=== PATIENT | female | born 1955 | race African-American/Black ===

== ENCOUNTER → 2020-01-10 16:46 | Outpatient (CLI) | payer OTHER, SELFPAY ==
--- NOTE | ~2020-01-10 | XR_ITS ---
EXAMINATION: XR chest 2V EXAM DATE: 01/10/2020 17:03 INDICATION: Cough for one month. TECHNIQUE: Frontal and lateral projections of the chest obtained and reviewed. Comparison is made to prior examination from 10/12/2014. FINDINGS: The lungs are clear. There are no pleural effusions. The cardiomediastinal silhouette is within normal limits. There is no pneumothorax suspected. The bones and soft tissues are unremarkab le. There are cholecystectomy clips. Cervical fusion hardware. IMPRESSION: No acute cardiopulmonary findings. Reviewed, dictated and finalized at location A.
== END ==
PROVIDERS: PCP Family Medicine; Visit Provider Family Medicine
DX: R05 Cough (principal)
CPT/HCPCS: 71046

== ENCOUNTER 2021-03-30 14:47 | Outpatient (CLI) | payer BC, SELFPAY ==
--- NOTE | ~2021-03-30 | XR_ITS ---
EXAMINATION: XR chest 2V 03/30/2021 15:10 INDICATION: Cough for 2 weeks PROCEDURE: 2 view chest COMPARISON: Comparison to multiple prior studies sequentially, with oldest reviewed study dated 11/05. FINDINGS: The lungs are clear. The cardiomediastinal silhouette is within normal limits. There are no pleural effusions. There is no pneumothorax suspected. There are surgical changes consistent wit h cervical spinal fusion. There are cholecystectomy clips. IMPRESSION: 1: NO ACUTE CARDIOPULMONARY DISEASE. Reviewed, dictated and finalized at location A.
== END 2021-03-30 14:48 | disposition home or self-care (01) ==
LOC: ANHIMG 14:53
PROVIDERS: PCP Family Medicine; Visit Provider Physician Assistant
DX: J06.9 Acute upper respiratory infection, unspecified (principal); R05 Cough
CPT/HCPCS: 71046

== ENCOUNTER 2024-03-02 13:39 | Outpatient (CLI) | payer BC, SELFPAY ==
--- NOTE | 2024-03-02 14:25 | NEURO_ITS ---
Impression: # Non-diabetic complains of numbness of hands. # Bilateral sensory Carpal Tunnel Syndrome. # No ulnar neuropathy. # Normal needle/EMG exam. Nerve Conduction Studies Anti Sensory Summary Table Stim Site NR Peak (ms) P-T Amp (?V) Site1 Site2 Delta-P (ms) Dist (cm) Alan (m/s) Left Median Anti Sensory (2-3nd Digit) Wrist 4.2 29.5 Wrist 2-3nd Digit 4.2 14.0 33 Wrist 3.9 35.4 Wrist 2-3nd Digit 4.2 14.0 33 Right Median Anti Sensory (2-3nd Digit) Wrist 3.5 12.9 Wrist 2-3nd Digit 3.5 14.0 40 Wrist 3.3 31.4 Wrist 2-3nd Digit 3.5 14.0 40 Left Radial Anti Sensory (Base 1st Digit) Wrist 2.1 12.5 Wrist Base 1st Digit 2.1 0.0 Right Radial Anti Sensory (Base 1st Digit) Wrist 2.4 25.5 Wrist Base 1st Digit 2.4 0.0 Left Ulnar Anti Sensory (5th Digit) Wrist 3.0 29.8 Wrist 5th Digit 3.0 14.0 47 Right Ulnar Anti Sensory (5th Digit) Wrist 2.6 14.9 Wrist 5th Digit 2.6 14.0 54 Motor Summary Table Stim Site NR Onset (ms) O-P Amp (mV) Site1 Site2 Delta-0 (ms) Dist (cm) Alan (m/s) Left Median Motor (Abd Poll Brev) Wrist 3.5 7.0 Elbow Wrist 5.3 31.0 58 Elbow 8.8 3.9 Right Median Motor (Abd Poll Brev) Wrist 3.4 2.5 Elbow Wrist 4.8 29.0 60 Elbow 8.2 1.9 Left Ulnar Motor (Abd Dig Minimi) Wrist 2.6 6.8 A Elbow Wrist 5.3 31.0 58 A Elbow 7.9 5.0 Right Ulnar Motor (Abd Dig Minimi) Wrist 2.7 2.8 A Elbow Wrist 5.0 31.0 62 A Elbow 7.7 2.9 F Wave Studies NR F-Lat (ms) L-R F-Lat (ms) Left Median (Mrkrs) (Abd Poll Brev) 28.98 1.32 Right Median (Mrkrs) (Abd Poll Brev) 27.66 1.32 Left Ulnar (Mrkrs) (Abd Dig Min) 28.36 1.17 Right Ulnar (Mrkrs) (Abd Dig Min) 27.19 1.17 EMG Side Muscle Nerve Root Ins Act Fibs Amp Dur Recrt Comment Right 1stDorInt Ulnar C8-T1 Nml Nml Nml Nml Nml Right Ext Indicis Radial (Post Int) C7-8 Nml Nml Nml Nml Nml Right Ext Digitorum Radial (Post Int) C7-8 Nml Nml Nml Nml Nml Right BrachioRad Radial C5-6 Nml Nml Nml Nml Nml Right PronatorTeres Median C6-7 Nml Nml Nml Nml Nml Right Abd Poll Brev Median C8-T1 Nml Nml Nml Nml Nml Right ABD Dig Min Ulnar C8-T1 Nml Nml Nml Nml Nml Left 1stDorInt Ulnar C8-T1 Nml Nml Nml Nml Nml Left Ext Indicis Radial (Post Int) C7-8 Nml Nml Nml Nml Nml Left Ext Digitorum Radial (Post Int) C7-8 Nml Nml Nml Nml Nml Left BrachioRad Radial C5-6 Nml Nml Nml Nml Nml Left PronatorTeres Median C6-7 Nml Nml Nml Nml Nml Left Abd Poll Brev Median C8-T1 Nml Nml Nml Nml Nml Left ABD Dig Min Ulnar C8-T1 Nml Nml Nml Nml Nml MTDD
== END 2024-03-02 13:40 | disposition home or self-care (01) ==
PROVIDERS: PCP Family Medicine; Visit Provider Family Medicine
DX: R20.0 Anesthesia of skin (principal); G56.03 Carpal tunnel syndrome, bilateral upper limbs
CPT/HCPCS: 95886; 95911

== ENCOUNTER 2024-11-29 16:14 | Outpatient (CLI) | payer BC, SELFPAY ==
[2024-11-29 17:21] LABS: Influenza A QL RT-PCR Positive (Negative); Influenza B QL RT-PCR Negative (Negative); RSV RNA, RT-PCR Negative (Negative); SARS-CoV-2 RNA PCR Negative (Negative)
--- OUTSIDE RECORDS SUMMARY | 2024-11-29 18:25 | XMS_ITS | Encounter Summary ---
Author Organization [facility] Facility Care Team Providers Care Scheme Technician Name Role Phone Jose Alfredo Rudolph MD Primary Care Provider Unknown, Notinfile Primary Care Provider Unavail able Jose Alfredo Rudolph MD Primary Care Provider Jose Alfredo Rudolph MD Unavailable [phone] Jose Alfredo Rudolph MD Primary Care Provider Cristine Thurston MD Unavailable [phone] Encounter Details Date Type Department Care Team (Latest Contact Info) Description 11/04/2018 Orders Only [facility] CLINCON[facility] ProviderDwight MD [address] [place] [id number] Social History Tobacco Use Types Packs/Day Years Used Date Smoking Tobacco: Never Assessed Comments Unknown Sex and Gender Information Value Date Recorded Sex Assigned at Not on file Legal Sex Female 11:47 PM ROUGHER OPERATOR Gender Identity Not on file Sexual Orientation Not on file documented as of this encounter Plan of Treatment Not on file documented as of this encounter Procedures Procedure Name Priority Date/Time Associated Diagnosis Comments PROCEDURE - RESULT 11/06/2018 12 :00 AM ROUGHER OPERATOR documented in this encounter Results * PROCEDURE - RESULT (11/06/2018 12:00 AM ROUGHER OPERATOR) Narrative 11/06/2018 12:00 AM ROUGHER OPERATOR Ordered by an unspecified provider. Historical Provider Final Res ult documented in this encounter Visit Diagnoses Not on filedocumented in this encounter Care Teams Scheme Technician Relationship Specialty Start Date End Date Jose Alfredo Rudolph MD [address] [place] [address] PCP - General 11/27/18 12/31/18 Unknown, Notinfile PCP - General 01/01/19 01/10/19 Jose Alfredo Rudolph MD [address] [place] [address] PCP - General Family Medicine 01/11/19 01/11/19 Jose Alfredo Rudolph MD [address] [place] [address] PCP - General Family Medicine 01/12/19 Jose Alfredo Rudolph MD [address] [place] [address] 01/01/19 Cristine Thurston MD [address] [place] [address] Referring Physician Obstetrics and Gynecology 05/04/22 documented as of this encounter
--- OUTSIDE RECORDS SUMMARY | 2024-11-29 18:25 | XMS_ITS | Encounter Summary ---
Author Organization [facility] Facility Care Team Providers Care Utilization Management Manager Name Role Phone Jose Alfredo Rudolph MD Primary Care Provider Unknown, Notinfile Primary Care Provider Unavail able Jose Alfredo Rudolph MD Primary Care Provider Jose Alfredo Rudolph MD Unavailable [phone] Jose Alfredo Rudolph MD Primary Care Provider Cristine Thurston MD Unavailable [phone] Encounter Details Date Type Department Care Team (Latest Contact Info) Description 09/09/2018 Orders Only [facility] CLINCONV ProviderDwight MD [address] [place] [address] Social History Tobacco Use Types Packs/Day Years Used Date Smoking Tobacco: Never Assessed Comments Unknown Sex and Gender Information Value Date Recorded Sex Assigned at Not on file Legal Sex Female 11:47 PM HEALTH CLINICIAN Gender Identity Not on file Sexual Orientation Not on file documented as of this encounter Plan of Treatment Not on file documented as of this encounter Procedures Procedure Name Priority Date/Time Associated Diagnosis Comments PROCEDURE - RESULT 09/10/2018 12 :00 AM HEALTH CLINICIAN documented in this encounter Results * PROCEDURE - RESULT (09/10/2018 12:00 AM HEALTH CLINICIAN) Narrative 09/10/2018 12:00 AM HEALTH CLINICIAN Ordered by an unspecified provider. Historical Provider Final Res ult documented in this encounter Visit Diagnoses Not on filedocumented in this encounter Care Teams Utilization Management Manager Relationship Specialty Start Date End Date Jose Alfredo Rudolph MD [address] [place] [address] PCP - General 11/27/18 12/31/18 Unknown, Notinfile PCP - General 01/01/19 01/10/19 Jose Alfredo Rudolph MD [address] [place] [address] PCP - General Family Medicine 01/11/19 01/11/19 Jose Alfredo Rudolph MD [address] [place] [address] PCP - General Family Medicine 01/12/19 Jose Alfredo Rudolph MD [address] [place] [address] 01/01/19 Cristine Thurston MD [address] [place] [address] Referring Physician Obstetrics and Gynecology 05/04/22 documented as of this encounter
--- OUTSIDE RECORDS SUMMARY | 2024-11-29 18:25 | XMS_ITS | Encounter Summary ---
Author Organization [facility] Facility Care Team Providers Care Billet Inspector Name Role Phone Jose Alfredo Rudolph MD Primary Care Provider Unknown, Notinfile Primary Care Provider Unavail able Jose Alfredo Rudolph MD Primary Care Provider Jose Alfredo Rudolph MD Unavailable [phone] Jose Alfredo Rudolph MD Primary Care Provider Cristine Thurston MD Unavailable [phone] Encounter Details Date Type Department Care Team (Latest Contact Info) Description 09/07/2018 Orders Only [facility] CLINCONV ProviderDwight MD [address] [place] [address] Social History Tobacco Use Types Packs/Day Years Used Date Smoking Tobacco: Never Assessed Comments Unknown Sex and Gender Information Value Date Recorded Sex Assigned at Not on file Legal Sex Female 11:47 PM CONSTRUCTION SALES REPRESENTATIVE Gender Identity Not on file Sexual Orientation Not on file documented as of this encounter Plan of Treatment Not on file documented as of this encounter Procedures Procedure Name Priority Date/Time Associated Diagnosis Comments PROCEDURE - RESULT 09/07/2018 12 :00 AM CONSTRUCTION SALES REPRESENTATIVE documented in this encounter Results * PROCEDURE - RESULT (09/07/2018 12:00 AM CONSTRUCTION SALES REPRESENTATIVE) Narrative 09/07/2018 12:00 AM CONSTRUCTION SALES REPRESENTATIVE Ordered by an unspecified provider. Historical Provider Final Res ult documented in this encounter Visit Diagnoses Not on filedocumented in this encounter Care Teams Billet Inspector Relationship Specialty Start Date End Date Jose Alfredo Rudolph MD [address] [place] [address] PCP - General 11/27/18 12/31/18 Unknown, Notinfile PCP - General 01/01/19 01/10/19 Jose Alfredo Rudolph MD [address] [place] [address] PCP - General Family Medicine 01/11/19 01/11/19 Jose Alferdo Rudolph MD [address] [place] [address] PCP - General Family Medicine 01/12/19 Jose Alfredo Rudolph MD [address] [place] [address] 01/01/19 Cristine Thurston MD [address] [place] [address] Referring Physician Obstetrics and Gynecology 05/04/22 documented as of this encounter
--- OUTSIDE RECORDS SUMMARY | 2024-11-29 18:25 | XMS_ITS | Clinical Summary ---
Author Organization [facility] Address [address], [address] [address] Phone Care Team Providers Care Principal Accounts Clerk Name Role Phone Jose Alfredo Rudolph MD Primary Care Provider Sylvain Mac DO Unavailable Medications polyethylene glycol (MIRALAX) Powder Mix the entire bottle with 64 oz of a clear liquid. Use as directed by the office for colonoscopy prep. 255 g 8 Active Social History Tobacco Use Types Packs/Day Years Used Date Smoking Tobacco: Never Assessed Comments Unknown Sex and Gender Information Value Date Recorded Sex Assigned at Not on file Legal Sex Female 10:44 AM CDT Gender Identity Not on file Sexual Orientation Not on file Plan of Treatment Health Maintenance Due Date Last Done Comments DEXA Bone Density 1955 Hepatitis C Virus (HCV) Screening 1955 TdaP Immunization 1955 Cologuard 01/11/2006 Immunochemical Fecal Occult Blood 01/11/2006 Mammogram 01/11/2006 Pneumococcal Immunization (5 0+ years) (1 of 1 - PCV) 01/11/2006 Zoster Immunization (1 of 2) 01/11/2006 Influenza Immunization (#1) 2024 SARS-COV-2 Immunization ( - season) 2024 Colonoscopy 03/30/2028 03/30/2018 Colorectal Cancer Screening 03/30/2028 Respiratory Syncytial Virus (RSV) Immunization (Adult) (1 - 1-dose 75+ series) 01/11/2031 03/30/2018 Hepatitis B Immunization Aged Out No longer eligible based on patient's age to complete this topic Meningococcal Immunization (ACWY) Aged Out No longer eligible based on patient's age to complete this topic Rotavirus Immunization Aged Out No lo nger eligible based on patient's age to complete this topic Procedures Procedure Name Priority Date/Time Associated Diagnosis Comments COLONOSCOPY Routine 03/30/2018 from Last 3 Months or Most Recently Relevant to Health Maintenance Results * HM COLONOSCOPY (03/30/2018) Sylvain Mac DO PROCEDURE/MINOR SURGICAL ORDERA BLES Final Result from Last 3 Months or Most Recently Relevant to Health Maintenance Care Teams Principal Accounts Clerk Relationship Specialty Start Date End Date Jose Alfredo Rudolph MD [address] [place] [address] PCP - General Family Medicine 12/31/17 Sylvain Mac DO [address] [place] [address] Gastroenterology 03/31/18
--- OUTSIDE RECORDS SUMMARY | 2024-11-29 18:25 | XMS_ITS | Clinical Summary ---
Author Organization [facility] [place] Address [facility] [place] [address] Care Team Providers Care Interventional Physician Name Role Phone Jose Alfredo Rudolph MD Unavailable [phone] Jose Alfredo Rudolph MD Primary Care Provider Cristine Thurston MD Unavailable [phone] Allergies No known active allergies Medications aspirin (ASPIR-81) 81 mg enteric coated tablet Rx: Aspir-81 Active calcium-magnesiu m-zinc tablet Rx: Calcium Magnesium Active atorvastatin (LIPITOR) 10 mg tablet 10 mg daily Active dilTIAZem XR (dilTIAZem CD) 240 mg 24 hr capsule 240 mg daily Active ibuprofen (ADVIL,MOTRIN) 800 mg tablet 800 mg 3 (three) times a day Active irbesartan (AVAPRO) 150 mg tablet 150 mg daily Active cupdl-ss-4-dha-e cq-bvluihj-fld (MEGARED OMEGA-3 KRILL OIL) 029-919-48-64 mg capsule 500 mg Active polyethylene glycol (MIRALAX) 17 gram/dose powder Mix the entire bottle with 64 oz of a clear liquid. Use as directed by the office for colonoscopy prep & PRN 8 Active triamterene-hydr oCHLOROthiazide (MAXZIDE-25MG) 37.5-25 mg per tablet/capsule daily Activ e vitamin b complex (VITAMINS B COMPLEX) tablet Rx: Vitamin B Complex - Tablet Active HYDROcodone-acet aminophen (NORCO) 5-325 mg per tablet 5-325 mg every 8 (eight) hours as needed 8 Active diclofenac sodium (VOLTAREN) 1 % gelIndications:S tatus post surgical manipulation of knee joint Apply 4 grams to affected area prn 4 Tube 9 Active Active Problems Problem Noted Date Diagnosed Date Pes anserinus bursitis of right knee 02/16/2019 Status post surgical manipulation of knee joint 2019 History of total knee arthroplasty, right 2018 History of arthroplasty of right knee 10/12/2018 Aftercare following joint replacement surgery Primary osteoarthritis of right knee 01/22/2018 Hypertension 06/02/2014 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 06/02/2014 Overview (01/22/2018): Description: , possible Spinal stenosis of cervical region 06/02/2014 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 Encounters Date Type Department Care Team Description 09/06/2024 11:57 AM [facility] - 09/06/2024 11:59 PM [facility] Hospital Encounter [facility] [place] [address] Screening mammogram, encounter for Discharge Disposition: Discharge to home or self care 09/06/2024 11:57 AM [facility] - 09/06/2024 11:59 PM [facility] [place] [place] [address] Asymptomatic menopausal state; Encounter for screening for osteoporosis Discharge Disposition: Discharge to home or self care from Last 3 Months Immunizations Immunization Administration Dates Next Due Influenza, Trivalent, Preservative Free, Intramu scular 07/13/2014 Surgical History Surgery Date Site/Laterality Comments CHOLECYSTECTOMY Cholecystectomy - (Added by LACEY Conv) JOINT REPLACEMENT KNEE SURGERY TOTAL KNEE ARTHROPLASTY 09/09/2018 Right MANIPULATION KNEE JOINT 11/04/2017 Right HYSTERECTOMY 03/13/1991 Hysterectomy - (Added by LACEY Conv) PARTIAL Medical History Medical History Date Comments Personal history of other di seases of the circulatory system History of hypertension - (A dded by TW Conv) Hypertension Hypercholesteremia Arthritis Family History Medical History Relation Name Comments Diabetes Father Family history of diabetes mellitus - (Added by TW Conv) Heart disease Father Family history of cardiac disorder - (Added by TW Conv) Hypertension Father Family history of hypertension - (Added by TW Conv) Stroke Father Family history of cerebrovascular accident - (Added by TW Conv) Heart disease Mother Family history of cardiac disorder - (Added by TW Conv) Breast cancer Mother's Sister Relation Name Status Comments Father Mother Mother's Sister Social History Tobacco Use Types Packs/Day Years Used Date Smoking Tobacco: Never Alcohol Use Standard Drinks/Week Comments Yes 0 (1 standard drink = 0.6 oz pur e alcohol) AUDIT-C Answer Date Recorded Frequency of Alcohol Consumption Monthly or less 2019 Average Number of Drinks Not on file 019 Frequency of Binge Drinking Not on file 11/2018 Comments No Sex and Gender Information Value Date Recorded Sex Assigned at Not on file Legal Sex Female 11:47 PM [facility] Gender Identity Not on file Sexual Orientation Not on file 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 file Not on file Obstetrics History Para Term AB IAB SAB Ectopic Multiple Livin g Live Births 3 2 2 Date Outcome GA Total Labor Labor/2nd/3rd Weight Sex Type Anes PTL Bre A1 A5 Name Clin Term Term Last Filed Vital Signs Vital Sign Reading Time Taken Comments Blood Pressure 108/66 11/04/2018 8:45 AM [facility] Pulse 65 11/04/2018 8:45 AM [employer] Temperature 36.4 C (97.5 F) 11/04/2018 8:45 AM [employer] [facility] [employer] Respiratory Rate - - Oxygen Saturation 93% 11/04/2018 8:45 AM [employer] Inhaled Oxygen Concentration - - Weight 88.5 kg (195 lb) 02/14/2020 3:15 PM CDT Height 165.1 cm (5' 5 ) 02/14/2020 3:15 PM CDT Body Mass Index 32.45 02/14/2020 3:15 PM CDT Plan of Treatment Health Maintenance Due Date Last Done Comments Colon Cancer Screening-Colonoscopy 1955 Depression Screening 1955 Fall Risk Assessment 1955 Hepatitis C Screening 1955 DTaP/Tdap/Td Vaccine (1 - Tdap) 01/11/1967 Hepatitis B Screening 01/11/1974 Zoster Vaccine (1 of 2) 01/11/2006 Pneumococcal vaccine 65+ (2 of 2 - PCV) 01/11/2021 11/30/2017 Well Visit 65+ 01/11/2021 Influenza Vaccine (#1) 2024 8, 11/30/2017, 08/03/2014, Additional history exists Breast Cancer Screening-Mammogram 09/06/2025 09/06/2024, 05/06/2023, 05/04/2022, Additional history exists Osteoporosis Screening-Bone Density Scan 09/06/2026 09/06/2024, 05/01/2021, 04/12/2019, Additional history exists Procedures Procedure Name Priority Date/Time Associated Diagnosis Comments SCREENING MAMMOGRAM BILATERAL W ISAIAS Schedule Routine, Read Routine (OP Routine) 09/06/2024 12:30 PM [facility] Screening mammogram, encounter for DEXA AXIAL SKELETON BONE DENSITY 1 OR MORE SITES Schedule Routine, Read Routine (OP Routine) 09/06/2024 12:30 PM [facility] Asymptomatic menopausal state Encounter for screening for osteoporosis from Last 3 Months Results * Screening Mammogram Bilateral W Isaias (09/06/2024 12:30 PM [facility]) Anatomical Region Laterality Modality Breast Bilateral Mammography Impressions 09/06/2024 1:12 PM [facility] BI-RADS ATLAS category (overall): 1 - Negative There is no mammographic evidence of malignancy. A 1 year screening mammogram is recommended. The patient has been or will be contacted. We recommend annual screening mammography for women at average risk of breast cancer beginning at age 40, based on guidelines of the [employer] (ACR Practice Parameter for the Performance of Screening and Diagnostic Mammography) and [employer]stetric[employer] Gynec[employer]. For women with and elevated risk of breast cancer, please refer to the ACR Practice Parameter for specific screening recommendations. The patient will be entered into a reminder system with a target due date of 1 year for her next screening exam. Narrative 09/06/2024 1:12 PM [facility] Screening Mammogram Bilateral W Isaias: 09/06/24 The study was acquired using full field digital technology and interpreted from soft copy. 2D digital mammographic views, as well as 3D digital tomosynthesis were performed in the CC and MLO projections. This study was resulted using Computer-Aided Detection (CAD). CLINICAL: Screening mammogram, encounter for. No relevant medical history has been documented for this patient. History of breast cancer in Mother's Sister. COMPARISONS: 05/06/2023 Screening Mammogram Bilateral W Isaias 05/04/2022 Screening Mammogram Bilateral W Isaias 05/01/2021 Screening Mammogram Bilateral W Isaias BREAST TISSUE: The breasts are heterogeneously dense, which may obscure small masses. FINDINGS: No suspicious masses, suspicious calcifications, or other suspicious findings are seen within either breast. There has been no suspicious change. us Self Screening Mammogram IMG MAMMO PROCEDURES Fi nal Result * Dexa Axial Skeleton Bone Density 1 or 2 Site (09/06/2024 12:30 PM [facility]) Anatomical Region Laterality Modality Body N/A Mammography 09/06/2024 1:30 PM [facility] Narrative 09/06/2024 1:31 PM [facility] EXAM DESCRIPTION: DEXA AXIAL SKELETON BONE DENSITY 1 OR MORE SITES REASON FOR STUDY: 69 y/o year old F with given history of: Post menopausal status. 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 LEFT HIP: Total BMD is 1.036 g/cm2 T-score is 0.0 This is a 9.5% decrease in comparison to prior exam which is statistically significant. Femoral neck BMD is 0.829 g/cm2 T-score is -0.9 FRAX: FRAX not reported due to T-scores of hip, femoral neck and/or spine being at or above -1.0 (Normal). IMPRESSION: Normal bone mass. REFERENCE: Bone mineral density: T-Score: Normal (T-score above or = -1.0) Low bone mass (T-score between -1.0 and -2.5) replaces the previously used term osteopenia Osteoporosis (T-score = or below -2.5) Z-Score: Within the expected range for age (Z-score above -2.0) Below the expected range for age (Z-score is -2.0 or below) Please see below follow up recommendations. Medical evaluation for secondary causes of low bone mineral density may be appropriate. FRAX is a World Health Organization validated fracture risk assessment tool that calculates a person's 10 year probability of a major osteoporosis related fracture and hip fracture. According to the National Osteoporosis Foundation guidelines, postmenopausal women and men age 50 or older with low bone mass and a 10 year probability of a major osteoporosis related fracture = or greater than 20% or a 10 year probability of a hip fracture = or greater than 3% should be considered for pharmacological treatment for the prevention of osteoporosis. For further information, including treatment recommendations, please refer to the 2019 ISCD Official Positions (http://www.iscd.org) and the NOF's Clinician's Guide to Prevention and Treatment of Osteoporosis (http://www.nof.org/professionals/clinical-guidelines) THIS IS AN ELECTRONICALLY VERIFIED FINAL REPORT 09/06/2024 1:31 PM - Electronically signed by Ana Luisa Mccabe M.D. TW: TW Report ID: [id number] Reading Location: [place] [id number] Procedure Note Ana Luisa Mccabe MD - 09/06/2024 EXAM DESCRIPTION: DEXA AXIAL SKELETON BONE DENSITY 1 OR MORE SITES REASON FOR STUDY: 69 y/o year old F with given history of: Post menopausal status. 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 LEFT HIP: Total BMD is 1.036 g/cm2 T-score is 0.0 This is a 9.5% decrease in comparison to prior exam which is statistically significant. Femoral neck BMD is 0.829 g/cm2 T-score is -0.9 FRAX: FRAX not reported due to T-scores of hip, femoral neck and/or spine beingat or above -1.0 (Normal). IMPRESSION: Normal bone mass. REFERENCE: Bone mineral density: T-Score: Normal (T-score above or = -1.0) Low bone mass (T-score between -1.0 and -2.5) replaces thepreviously used term osteopenia Osteoporosis (T-score = or below -2.5) Z-Score: Within the expected range for age (Z-score above -2.0) Below the expected range for age (Z-score is -2.0 or below) Please see below follow up recommendations. Medical evaluation forsecondary causes of low bone mineral density may be appropriate. FRAX is a World Health Organization validated fracture risk assessmenttool that calculates a person's 10 year probability of a major osteoporosisrelated fracture and hip fracture. According to the National OsteoporosisFoundation guidelines, postmenopausal women and men age 50 or older with low bonemass and a 10 year probability of a major osteoporosis related fracture = or greater than 20% or a 10 year probability of a hip fracture = or greaterthan 3% should be considered for pharmacological treatment for the preventionof osteoporosis. For further information, including treatment recommendations, please referto the 2019 ISCD Official Positions (http://www.iscd.org) and the NOF's Clinician's Guide to Prevention and Treatment of Osteoporosis (http://www.nof.org/professionals/clinical-guidelines) THIS IS AN ELECTRONICALLY VERIFIED FINAL REPORT 09/06/2024 1:31 PM - Electronically signed by Ana Luisa Mccabe M.D. TW: TW Report ID: [id number] Reading Location: [id number] Jarret Diego MD IMG DXA PROCEDURES Final Re sult from Last 3 Months Insurance [facility] [place] PPO [facility] Care Teams Interventional Physician Relationship Specialty Start Date End Date Jose Alfredo Rudolph MD [address] [place] [address] PCP - General Family Medicine 01/12/19 Jose Alfredo Rudolph MD [address] [place] [address] 01/01/19 Cristine Thurston MD [address] [place] [address] Referring Physician Obstetrics and Gynecology 05/04/22
--- OUTSIDE RECORDS SUMMARY | 2024-11-29 18:25 | XMS_ITS | Encounter Summary ---
Author Organization [facility] Address [address] [place] [address] Care Team Providers Care Card Decorator Name Role Phone Kimmy Posadas MD Unavailable [phone] Jose Alfredo Rudolph MD Primary Care Provider [phone] Encounter Details Date Type Department Care Team (Late Contact Info) Description 08/24/2018 Abstract [facility] at [address] [phone] Yue Ramirez, [facility] Social History Tobacco Use Types Packs/Day Years Used Date Smoking Tobacco: Never Smokeless Tobacco: Never Alcohol Use Standard Drinks/Week Comments Yes 0 (1 standard drink = 0.6 oz pur e alcohol) rarely AUDIT-C Answer Date Recorded Frequency of Alcohol Consumption Monthly or less 08/20/2018 Average Number of Drinks Not on file 018 Frequency of Binge Drinking Not on file 05/2018 Comments No Sex and Gender Information Value Date Recorded Sex Assigned at Not on file Legal Sex Female 10:10 AM CDT Gender Identity Not on file Sexual Orientation Not on file 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 [place] [address] documented as of this encounter Procedures Procedure Name Priority Date/Time Associated Diagnosis Comments CBC (OUTSIDE LAB) Routine 08/18/2018 BASIC METABOLIC PANEL Routine 08/18/2018 documented in this encounter Results * CBC (OUTSIDE LAB) (08/18/2018) WBC 5.0 HGB 13.3 HCT 39.5 PLT 230 RBC 4.37 08/18/2018 [facility] Abstract LAB-OUTSIDE/ABSTRACTED Final Result * (ABNORMAL) BASIC METABOLIC PANEL (08/18/2018) SODIUM S/P/B 141 POTASSIUM S/P/B 3.3 CO2 29 CHLORIDE S/P/B 102 GLUCOSE 95 mg/dL CALCIUM S/P/B 9.9 BUN 18 CREATININE S/P/B 1.5(A) 0.5 - 1.0 08/18/2018 [facility] Abstract LABORATORY Final Result documented in this encounter Visit Diagnoses Not on filedocumented in this encounter Care Teams Card Decorator Relationship Specialty Start Date End Date Jose Alfredo Rudolph MD [address] [facility] [address] [place] [address] PCP - General FAMILY PRACTICE 06/13/16 Kimmy Posadas MD [address] [place] [address] Minong Waiter CARDIOVASCULAR DISEASE 03/13/16 documented as of this encounter
--- OUTSIDE RECORDS SUMMARY | 2024-11-29 18:25 | XMS_ITS | Referral Summary ---
Author Organization [facility] [place] Address [address] [place] [address] Care Team Providers Care Newspaper Reporter Name Role Phone Jose Alfredo Rudolph MD Unavailable [phone] Jose Alfredo Rudolph MD Primary Care Provider Cristine Thurston MD Unavailable [phone] Encounters Date Type Department Care Team Description 09/06/2024 11:57 AM [facility] - 09/06/2024 11:59 PM [facility] Hospital Encounter [facility] Medical Office [address] [address] Screening mammogram, encounter for Discharge Disposition: Discharge to home or self care 09/06/2024 11:57 AM [facility] - 09/06/2024 11:59 PM [facility] Hospital Encounter [address] [address] Asymptomatic menopausal state; Encounter for screening for osteoporosis Discharge Disposition: Discharge to home or self care from Last 3 Months Allergies No known active allergies Medications aspirin [...] 150 mg tablet 150 mg daily Active obzlt-xf-2-dha-e hy-yfwgccy-peu (MEGARED OMEGA-3 KRILL OIL) [id number] mg capsule 500 mg Active polyethylene glycol [...] disorder of cervical region with myelopathy 06/02/2014 Immunizations Immunization Administration Dates Next Due Influenza, Trivalent, Preservative Free, Intramu scular 07/13/2014 Social History Tobacco Use Types Packs/Day Years [...] on file Legal Sex Female 11:47 PM [facility] Gender Identity Not on file Sexual Orientation Not on file 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 file Not on file Last Filed Vital Signs Vital Sign Reading Time Taken Comments Blood Pressure 108/66 11/04/2018 8:45 AM [facility] Pulse 65 11/04/2018 8:45 AM [facility] Temperature 36.4 C (97.5 F) 11/04/2018 8:45 AM [facility] Respiratory Rate - - Oxygen Saturation 93% 11/04/2018 8:45 AM [facility] Inhaled Oxygen Concentration - - Weight 88.5 kg (195 lb) 02/14/2020 3:15 PM CDT Height 165.1 cm (5' 5 ) 02/14/2020 3:15 PM CDT Body Mass Index 32.45 02/14/2020 3:15 PM CDT Plan of Treatment Not on file Procedures Procedure Name Priority Date/Time Associated Diagnosis Comments SCREENING MAMMOGRAM BILATERAL W ISAIAS Schedule Routine, Read Routine (OP Routine) 09/06/2024 12:30 PM [facility] Screening mammogram, encounter for DEXA AXIAL SKELETON BONE DENSITY 1 OR MORE SITES Schedule Routine, Read Routine (OP Routine) 09/06/2024 12:30 PM [facility] Asymptomatic menopausal state Encounter for screening for osteoporosis from Last 3 Months Results * Screening Mammogram Bilateral W Isaias (09/06/2024 12:30 PM [facility]) Anatomical Region Laterality Modality Breast Bilateral Mammography Impressions 09/06/2024 1:12 PM [facility] BI-RADS ATLAS category (overall): 1 - Negative There is no mammographic evidence of malignancy. A 1 year screening mammogram is recommended. The patient has been or will be contacted. We recommend annual screening mammography for women at average risk of breast cancer beginning at age 40, based on guidelines of the [employer] (ACR Practice Parameter for the Performance of Screening and Diagnostic Mammography) and [employer]. For women with and elevated risk of breast cancer, please refer to the ACR Practice Parameter for specific screening recommendations. The patient will be entered into a reminder system with a target due date of 1 year for her next screening exam. Narrative 09/06/2024 1:12 PM [facility] Screening Mammogram Bilateral W Isaias: 09/06/24 The [...] 1 or 2 Site (09/06/2024 12:30 PM [facility]) Anatomical Region Laterality Modality Body N/A Mammography 09/06/2024 1:30 PM [facility] Narrative 09/06/2024 1:31 PM [facility] EXAM DESCRIPTION: DEXA AXIAL SKELETON BONE DENSITY 1 OR MORE SITES REASON FOR STUDY: 69 y/o year old F with given history of: Post menopausal status. 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 TW: LACEY Report ID: [id number] Reading Location: [id number] Procedure Note Ana Luisa Mccabe MD - 09/06/2024 EXAM DESCRIPTION: DEXA AXIAL SKELETON BONE DENSITY 1 OR MORE SITES REASON FOR STUDY: 69 y/o year old F with given history of: Post menopausal status. 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 TW: LACEY Report ID: [id number] Reading Location: [id number] Jarret Diego MD IMG DXA PROCEDURES Final Re sult from Last 3 Months Insurance [facility] PPO [facility] Care Teams Newspaper Reporter Relationship Specialty Start Date End Date Jose Alfredo Rudolph MD [address] [facility] [address] [place] [address] PCP - General Family Medicine 01/12/19 Jose Alfredo Rudolph MD [address] [place] [address] 01/01/19 Cristine Thurston MD [address] [place] [address] Referring Physician Obstetrics and Gynecology 05/04/22
--- OUTSIDE RECORDS SUMMARY | 2024-11-29 18:25 | XMS_ITS | Encounter Summary ---
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 No / Unsure 04/19/2020 12:27 PM CDT documented as of this encounter Plan of Treatment Upcoming Encounters Date Type Department Care Team (Late st Contact Info) Description 02/09/2025 4:00 PM CDT Office Visit [facility] [address], [address] [place] [address] Kimmy Posadas MD [address] [place] [address] documented as of this encounter Procedures Procedure Name Priority Date/Time Associated Diagnosis Comments AST/SGOT Routine 04/17/2020 BASIC METABOLIC PANEL Routine 04/17/2020 LIPID PANEL Routine 04/17/2020 ALT/SGPT Routine 04/17/2020 documented in this encounter Results * ALT/SGPT (04/17/2020) ALT 12 6 - 29 04/17/2020 [facility] Final Result * AST/SGOT (04/17/2020) AST 21 10 - 35 04/17/2020 [facility] Edited Resul t - Final * (ABNORMAL) BASIC METABOLIC PANEL (04/17/2020) SODIUM S/P/B 141 POTASSIUM S/P/B 4.0 CO2 28 CHLORIDE S/P/B 104 GLUCOSE 83 mg/dL CALCIUM S/P/B 10.0 BUN 21 CREATININE S/P/B 1.20(A) 0.5 - 1.0 EGFR AFR. AMER. 55 <=90 EGFR NON-AFR. AMER. 48 <=90 04/17/2020 [facility] Edited Resul t - Final * LIPID PANEL (04/17/2020) CHOLESTEROL 208 HDL 86 TRIGLYCERIDES 70 NON HDL CHOLESTEROL 122 LDL (CALCULATED) 106 04/17/2020 [facility] Final Result documented in this encounter Visit Diagnoses Not on filedocumented in this encounter Care Teams Chiller Technician Relationship Specialty Start Date End Date Jose Alfredo Rudolph MD [address] [place] [address] PCP - General FAMILY PRACTICE 06/13/16 Kimmy Posadas MD [facility] [address] [place] [address] [place] Operating Room Coordinator CARDIOVASCULAR DISEASE 03/13/16 documented as of this encounter
--- OUTSIDE RECORDS SUMMARY | 2024-11-29 18:25 | XMS_ITS | Clinical Summary ---
Author Organization [facility] Address Formerly [facility] [place] [address] Care Team Providers Care Urology Physician Name Role Phone Kimmy Posadas MD Unavailable [phone] Jose Alfredo Rudolph MD Primary Care Provider [phone] Allergies No known active allergies Medications aspirin EC (ASPIRIN ADULT LOW DOSE) 81 MG tablet Take 1 tablet by mouth daily. 05/11/2014 Active calcium-magnesi um-zinc 333-133-5 MG Tab Take 1 tablet by mouth daily. 05/11/2014 Active Multiple Vitamin (DAILY VITAMINS) Tab Take 1 tablet by mouth daily. 05/11/2014 Active irbesartan 150 MG tablet Take 150 mg by mouth daily. 05/11/2014 Active Cholecalciferol (KP VITAMIN D) 1000 UNITS capsule Take 1 tablet by mouth daily. 05/11/2014 Active probiotic capsule Take 1 capsule by mouth daily with breakfast. Active nitroglycerin 0.[address] 0.4 mg under the tongue every 5 (five) minutes as needed. 11/28/2021 Active B complex-C Cap capsule Take 1 capsule by mouth daily. Active atorvastatin (LIPITOR) 20 MG tablet Take 2 tablets (40 mg total) by mouth daily. 180 tablet 1 07/01/2023 Active triamterene-hyd roCHLOROthiazid e (MAXZIDE-25) 37.5-25 MG tablet Take 1 tablet by mouth 2 (two) times daily. 07/03/2023 Active dilTIAZem CD (CARDIZEM CD) 120 MG 24 hr capsule Take 1 capsule (120 mg total) by mouth daily. 90 capsule 1 07/02/2024 Active amoxicillin (AMOXIL) 500 MG capsule Take 4 capsules (2,000 mg total) by mouth once. 06/03/2024 Active Active Problems Problem Noted Date Diagnosed Date Chest pain with high risk of acute coronary synd bhargavi 12/26/2021 JOSE R on CPAP 11/06/2020 Snoring 07/07/2020 JAIN (dyspnea on exertion) 07/07/2020 BMI 34.0-34.9,adult 07/07/2020 Environmental and seasonal allergies 07/07/2020 Renal insufficiency 08/20/2018 Chronic fatigue 06/26/2016 Excessive daytime sleepiness 06/26/2016 Precordial pain Pure hypercholesterolemia Essential hypertension Coronary artery disease invo [place]ving [place] coronary artery of [place] heart without angina pectoris Resolved Problems Problem Noted Date Diagnosed Date Resolved Date Pre-operative clearance 08/20/201806/13 Immunizations Name Administration Dates Next Due Influenza (Generic) 07/13/2014 Influenza Adult (Generic) 11/30/2017 Pneumococcal (Pneumovax 23) 11/30/2017 Family History Medical History Relation Comments Diabetes Father Heart Disease Father Hyperlipidemia Father Stroke Father massive mi Maternal Uncle Hypertension Mother [place] Mother cause of dyslipidemia Mother Heart Disease Other cause of Heart Disease Paternal Grandmother cause of de ath Relation Status Comments Father (Age 70's) Maternal Grandfather Maternal Grandmother Maternal Uncle (Age 40's) Mother Other Paternal Grandfather Paternal Grandmother (Age 70's) Social History Tobacco Use Types Packs/Day Years Used Date Smoking Tobacco: Never Smokeless Tobacco: Never Tobacco Cessation:Counseling Given: Not Answered Alcohol Use Standard Drinks/Week Comments Not Currently 0 (1 standard drink = 0.6 oz pur e alcohol) AUDIT-C Answer Date Recorded Frequency of Alcohol Consumption Monthly or less 08/20/2018 Average Number of Drinks Not on file 018 Frequency of Binge Drinking Not on file 05/2018 PHQ-2 Answer Date Recorded PHQ-2 Score - If the patient scores above 3, please move on to questions 3-9 0 11/06/2020 Comments No Sex and Gender Information Value Date Recorded Sex Assigned at Not on file Legal Sex Female 10:10 AM CDT Gender Identity Not on file Sexual Orientation Not on file 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 Not on file Not on file Last Filed Vital Signs Vital Sign Reading Time Taken Comments Blood Pressure 122/78 08/09/2024 3:36 PM CDT Pulse 89 08/09/2024 3:36 PM CDT Temperature 36.7 C (98 F) 06/18/2024 12:54 PM CDT Respiratory Rate 18 06/18/2024 4:38 PM CDT Oxygen Saturation 100% 08/09/2024 3:36 PM CDT Inhaled Oxygen Concentration - - Weight 88 kg (194 lb) 08/09/2024 3:36 PM CDT Height 165.1 cm (5' 5 ) 08/09/2024 3:36 PM CDT Body Mass Index 32.28 08/09/2024 3:36 PM CDT Plan of Treatment Upcoming Encounters Date Type Department Care Team (Late st Contact Info) Description 02/09/2025 4:00 PM CDT Office Visit [facility], [facility] [address] [place] [address] Kimmy Posadas MD Three [facility]. [address] [place] [address] Health Maintenance Due Date Last Done Comments ASCVD Statin 1955 Colorectal Cancer Screening Colonoscopy (10 Years) 1955 Hepatitis C 01/11/1974 DTaP, Tdap and Td Vaccines (1 - Tdap) 01/11/1975 Zoster Vaccines (1 of 2) 01/11/2006 RSV Immunization or 60+ Years (1 - Risk 60-74 years 1-dose series) 2016 Pneumococcal Vaccine: 65+ Years (2 of 2 - PCV) 11/30/2018 11/30/2017 COVID-19 Vaccine (1 - season) 2024 Influenza Adult (#1) 2024 11/30/2017, 07/13/20 14 Mammogram Screening 05/06/2025 05/06/2023, 05/04/2022, 05/01/2021, Additional history exists Dexa Scan (General) Completed 05/01/2021, 05/01/2021, 04/12/2019, Additional history exists Meningococcal B Vaccine Aged Out No l onger eligible based on patient's age to complete this topic Meningococcal Vaccine Aged Out No joanne lety eligible based on patient's age to complete this topic RSV Immunizations Under 20 Months Aged Out No longer eligible based on patient's age to complete this topic Insurance [facility] MEDICARE PART A Advance Directives * Full Code (Latest Code Status on File) Date Activated Date Inactivated Comments 12/26/2021 3:21 PM 12/27/2021 5:43 PM Care Teams Urology Physician Relationship Specialty Start Date End Date Jose Alfredo Rudolph MD [address] [facility] [address] [place] [address] PCP - General FAMILY PRACTICE 06/13/16 Kimmy Posadas MD [address] [address] [place] Doughnut Icer CARDIOVASCULAR DISEASE 03/13/16
--- OUTSIDE RECORDS SUMMARY | 2024-11-29 18:25 | XMS_ITS | Encounter Summary ---
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 No / Unsure 01/23/2022 9:54 AM CDT documented as of this encounter Functional Status * RETIRED Are you deaf or do you have serious difficulty hearing Answer Date of Assessment Author Status No 12/26/2021 5:03 PM CDT Activ e * RETIRED Are you blind or do you have serious difficulty seeing, even when wearing glasses? Answer Date of Assessment Author Status No 12/26/2021 5:03 PM CDT Activ e * Do you have serious difficulty walking or climbing stairs? Answer Date of Assessment Author Status Yes 12/26/2021 5:03 PM CDT Filomena White R N Active * Do you have difficulty dressing or bathing? Answer Date of Assessment Author Status No 12/26/2021 5:03 PM CDT Filomena White R N Active * Because of a physical, mental, or emotional condition, do you have difficulty doing errands alone such as visiting a doctor's office or shopping? Answer Date of Assessment Author Status No 12/26/2021 5:03 PM CDT Filomena White R N Active documented as of this encounter Mental Status * Because of a physical, mental, or emotional condition, do you have serious difficulty concentrating, remembering, or making decisions? Answer Entry Date Author Status No 12/26/2021 5:03 PM CDT Filomena White R N Active documented in this encounter Plan of Treatment Upcoming Encounters Date Type Department Care Team (Late st Contact Info) Description 02/09/2025 4:00 PM CDT Office Visit [facility] THREE [facility], [facility] [address] [place] [address] Kimmy Posadas MD Three [facility]. [facility] [address] [place] [address] documented as of this encounter Procedures Procedure Name Priority Date/Time Associated Diagnosis Comments TSH (OUTSIDE LAB) Routine 07/03/2024 CBC (OUTSIDE LAB) Routine 07/03/2024 COMPREHENSIVE METABOLIC PANEL Routine 07/03/2024 LIPID PANEL Routine 07/03/2024 HEMOGLOBIN, GLYCOSYLATED Routine 07/03/2024 LIPID PANEL Routine 12/06/2023 COMPREHENSIVE METABOLIC PANEL Routine 06/09/2023 LIPID PANEL Routine 06/09/2023 CBC, MANUAL DIFF Routine 06/09/2023 LIPID PANEL Routine 02/07/2022 documented in this encounter Results * LIPID PANEL (07/03/2024) CHOLESTEROL 189 HDL 80 TRIGLYCERIDES 50 NON HDL CHOLESTEROL 109 LDL (CALCULATED) 96 07/03/2024 us Default History Genericprovider LABORATORY Edited Result - Final * (ABNORMAL) COMPREHENSIVE METABOLIC PANEL (07/03/2024) SODIUM S/P/B 139 POTASSIUM S/P/B 3.6 CO2 28 CHLORIDE S/P/B 102 GLUCOSE 96 mg/dL CALCIUM S/P/B 10.1 BUN 22 CREATININE S/P/B 1.25(A) 0.5 - 1.0 GFR ESTIMATE 47 ALKALINE PHOSPHATASE S/P/B 74 ALT 11 AST 21 BILIRUBIN TOTAL S/P/B 0.6 ALBUMIN S/P/B 4.2 3.5 - 5.0 TOTAL PROTEIN S/P/B 7.1 GLOBULIN 2.9 07/03/2024 us Default History Genericprovider LABORATORY Edited Result - Final * HEMOGLOBIN, GLYCOSYLATED (07/03/2024) HGB A1C 6.5 % 07/03/2024 us Default History Genericprovider LABORATORY Edited Result - Final * TSH (OUTSIDE LAB) (07/03/2024) Pathologist [facility] TSH 1.49 07/03/2024 Default History Genericprovider LAB-OUTSIDE/ABST RACTED Edited Result - Final * CBC (OUTSIDE LAB) (07/03/2024) Pathologist [facility] WBC 4.3 HGB 13.2 HCT 39.9 PLT 204 07/03/2024 Default History Genericprovider LAB-OUTSIDE/ABST RACTED Edited Result - Final * LIPID PANEL (12/06/2023) [facility] CHOLESTEROL 179 HDL 75 TRIGLYCERIDES 49 NON HDL CHOLESTEROL 104 LDL (CALCULATED) 90 12/06/2023 Result [facility] History Genericprovider LABORATORY Final Result * (ABNORMAL) COMPREHENSIVE METABOLIC PANEL (06/09/2023) Pathologist [facility] SODIUM S/P/B 141 GLUCOSE 87 mg/dL AST 21 BUN 18 CREATININE S/P/B 1.10(A) 0.5 - 1.0 CALCIUM S/P/B 10.1 POTASSIUM S/P/B 3.6 CHLORIDE S/P/B 102 ALT 12 GFR ESTIMATE 55 Narrative Resulting Agency Comment Default History Genericprovider LABORATORY Final Result * LIPID PANEL (06/09/2023) Pathologist [facility] CHOLESTEROL 214 TRIGLYCERIDES 64 HDL 92 LDL (CALCULATED) 107 NON HDL CHOLESTEROL 122 Narrative Resulting Agency Comment Default History Genericprovider LABORATORY Final Result * CBC, MANUAL DIFF (06/09/2023) Pathologist [facility] WBC 3.7 HGB 13.6 HCT 40.3 PLT 212 Narrative Resulting Agency Comment Default History Genericprovider LABORATORY Final Result * LIPID PANEL (02/07/2022) CHOLESTEROL 178 HDL 70 TRIGLYCERIDES 54 NON HDL CHOLESTEROL 108 LDL (CALCULATED) 94 02/07/2022 us Doc [facility] Final Result documented in this encounter Visit Diagnoses Not on filedocumented in this encounter Care Teams Enterprise Resource Planner Relationship Specialty Start Date End Date Jose Alfredo Rudolph MD [address] [place] [address] PCP - General FAMILY PRACTICE 06/13/16 Kimmy Posadas MD Three [facility]. [facility] [address] [place] [address] [place] [employer] Crewmember CARDIOVASCULAR DISEASE 03/13/16 documented as of this encounter
--- OUTSIDE RECORDS SUMMARY | 2024-11-29 18:25 | XMS_ITS | Encounter Summary ---
Author Organization [facility] Address [address] [place] [address] Care Team Providers Care Ropewalk Rope Maker Name Role Phone Kimmy Posadas MD Unavailable [phone] Jose Alfredo Rudolph MD Primary Care Provider [phone] Encounter Details Date Type Department Care Team (Late st Contact Info) Description 07/16/2016 Abstract [facility] AT [address] [address] Shaheed Gonzalez MA Social History Tobacco Use Types Packs/Day Years Used Date Smoking Tobacco: Never Smokeless Tobacco: Never Alcohol Use Standard Drinks/Week Comments Yes 0 (1 standard drink = 0.6 oz pur e alcohol) rarely Comments No Sex and Gender Information Value Date Recorded Sex Assigned at Not on file Legal Sex Female 10:10 AM CDT Gender Identity Not on file Sexual Orientation Not on file 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 [facility] [address] [place], [place] [id number] documented as of this encounter Procedures Procedure Name Priority Date/Time Associated Diagnosis Comments CBC (OUTSIDE LAB) Routine 06/18/2016 VITAMIN B-12 Routine 06/18/2016 COMPREHENSIVE METABOLIC PANEL Routine 06/18/2016 LIPID PANEL Routine 06/18/2016 FOLIC ACID SERUM Routine 06/18/2016 THYROID STIM HORMONE TSH Routine 06/18/2016 documented in this encounter Results * FOLIC ACID SERUM (06/18/2016) FOLATE >24 06/18/2016 us [facility] Final Result * VITAMIN B-12 (06/18/2016) VITAMIN B12 S/P/B 897 06/18/2016 us Doc [facility] Final Result * CBC (OUTSIDE LAB) (06/18/2016) WBC 5.2 HGB 14.4 HCT 43.3 PLT 192 06/18/2016 us Doc [facility] LAB-OUTSIDE/ABSTRACTED Final Result * THYROID STIM HORMONE, TSH (06/18/2016) TSH 1.65 06/18/2016 us Doc [facility] Final Result * COMPREHENSIVE METABOLIC PANEL (06/18/2016) SODIUM S/P/B 137 POTASSIUM S/P/B 3.9 CO2 26 CHLORIDE S/P/B 100 GLUCOSE 89 CALCIUM S/P/B 9.9 BUN 21 CREATININE S/P/B 1.22 EGFR AFR. AMER. 56 EGFR NON-AFR. AMER. 48 ALKALINE PHOSPHATASE S/P/B 68 ALT 14 AST 22 BILIRUBIN TOTAL S/P/B 0.7 ALBUMIN S/P/B 4.4 3.5 - 5.0 TOTAL PROTEIN S/P/B 7.7 GLOBULIN 3.3 06/18/2016 us Doc [facility] Final Result * LIPID PANEL (06/18/2016) CHOLESTEROL 269 HDL 91 TRIGLYCERIDES 104 NON HDL CHOLESTEROL 178 LDL (CALCULATED) 157 06/18/2016 us Doc [facility] Final Result documented in this encounter Visit Diagnoses Not on filedocumented in this encounter Care Teams [place] Rope Maker Relationship Specialty Start Date End Date Jose Alfredo Rudolph MD [address] [place] [address] PCP - General FAMILY PRACTICE 06/13/16 Kimmy Posadas MD Three [facility]. [facility] [address] [place] [address] [place] Pigs Feet Finisher CARDIOVASCULAR DISEASE 03/13/16 documented as of this encounter
--- OUTSIDE RECORDS SUMMARY | 2024-11-29 18:25 | XMS_ITS | Encounter Summary ---
Author Organization [facility] Care Team Providers Care Mold Maker Name Role Phone Jose Alfredo Rudolph MD Primary Care Provider Unknown, Notinfile Primary Care Provider Unavail able Jose Alfredo Rudolph MD Primary Care Provider Jose Alfredo Rudolph MD Unavailable [phone] Jose Alfredo Rudolph MD Primary Care Provider Cristine Thurston MD Unavailable [phone] Encounter Details Date Type Department Care Team (Latest Contact Info) Description 08/21/2018 Orders Only [facility] ProviderDwight MD [address] [place] [address] Social History Tobacco Use Types Packs/Day Years Used Date Smoking Tobacco: Never Assessed Comments Unknown Sex and Gender Information Value Date Recorded Sex Assigned at Not on file Legal Sex Female 11:47 PM BUSINESS DIVISION CHAIR Gender Identity Not on file Sexual Orientation Not on file documented as of this encounter Plan of Treatment Not on file documented as of this encounter Procedures Procedure Name Priority Date/Time Associated Diagnosis Comments PROCEDURE - RESULT 08/21/2018 12 :00 AM BUSINESS DIVISION CHAIR documented in this encounter Results * PROCEDURE - RESULT (08/21/2018 12:00 AM BUSINESS DIVISION CHAIR) Narrative 08/21/2018 12:00 AM BUSINESS DIVISION CHAIR Ordered by an unspecified provider. Historical Provider Final Res ult documented in this encounter Visit Diagnoses Not on filedocumented in this encounter Care Teams Mold Maker Relationship Specialty Start Date End Date Jose Alfredo Rudolph MD [address] [place] [address] PCP - General 11/27/18 12/31/18 Unknown, Notinfile PCP - General 01/01/19 01/10/19 Jose Alfredo Rudolph MD [address] [place] [address] PCP - General Family Medicine 01/11/19 01/11/19 Jose Alfredo Rudolph MD [address] [place] [address] PCP - General Family Medicine 01/12/19 Jose Alfredo Rudolph MD [address] [place] [address] 01/01/19 Cristine Thurston MD [address] [place] [address] Referring Physician Obstetrics and Gynecology 05/04/22 documented as of this encounter
== END 2024-11-29 16:15 | disposition home or self-care (01) ==
LOC: ANHLAB 16:16
PROVIDERS: PCP Family Medicine; Visit Provider Physician Assistant Medical
DX: R50.9 Fever, unspecified (principal); R05.9 Cough, unspecified; R51.9 Headache, unspecified; Z20.822 Contact with and (suspected) exposure to COVID-19
CPT/HCPCS: 87637

== ENCOUNTER 2024-12-04 08:37 | Emergency (ER) | payer BC, SELFPAY ==
[2024-12-04] VITALS (29 sets, daily range): BP systolic 99–137; BP diastolic 60–89; PULSE 62–88; RESP 10–25; TEMP 36.6; O2SAT 97–100
--- NOTE | ~2024-12-04 | CT_ITS ---
EXAMINATION: CT diagnostic chest wo con DATE: 12/04/2024 12:33 INDICATION: SOB TECHNIQUE: Computed tomography (CT) of the chest was performed without intravenous contrast. Addition al 3D reconstructions utilizing coronal maximum intensity projection (MIP) were performed. Automated exposure control and iterative reconstruction technique were employed. The dose-length product was 14 9.93 mGy-cm. COMPARISON: 09/01/2010 FINDINGS: A couple unchanged 2 mm pulmonary nodules right middle and left upper lobes which given greater than 13 years of stability are most certainly benign sequela of old granulomatous disease requiring no fur ther follow-up. No pneumonia, pulmonary edema, pleural effusion or pneumothorax. Heart size is normal . Atherosclerotic coronary artery calcification is. No pericardial effusion. Thoracic aorta is normal in caliber. No pathologically enlarged thoracic lymphadenopathy. Cholecystectomy clips at the gallbl adder fossa. 1.3 similar right renal cyst. A few splenic calcification consistent with old granulomat ous disease. Mild to moderate thoracic spondylosis with bridging osteophytes at multiple levels consi stent with diffuse idiopathic skeletal hyperostosis (DISH). Partially visualized instrumented posteri or spinal fusion with bilateral vertical rods and screws beginning at T1 and extending into the more cephalad nonvisualized cervical spine. IMPRESSION: 1. No acute cardiopulmonary disease. Reviewed, dictated and finalized at location A. T ORGANIZER
--- NOTE | ~2024-12-04 | XR_ITS ---
EXAMINATION: XR chest 1V portable DATE: 12/04/2024 10:17 INDICATION: Weakness and fluid TECHNIQUE: frontal view of the chest was obtained. COMPARISON: Chest radiograph dated 03/30/2021 FINDINGS: The lungs remain clear with no focal airspace opacities, pulmonary edema, pleural effusion or pneumot horax. The cardiomediastinal silhouette is normal. Cholecystectomy clips in right upper quadrant. Ins trumented posterior cervical spinal fusion with bilateral vertical kenyatta and lateral mass screw fixatio n. IMPRESSION: 1. No acute cardiopulmonary disease. Reviewed, dictated and finalized at location A. S ETCHER
--- OUTSIDE RECORDS SUMMARY | 2024-12-04 08:40 | XMS_ITS | Encounter Summary ---
Author Organization [facility] Facility Care Team Providers Care Well Logging Captain Name Role Phone Jose Alfredo Rudolph MD Primary Care Provider Unknown, Notinfile Primary Care Provider Unavail able Jose Alfredo Rudolph MD Primary Care Provider Jose Alfredo Rudolph MD Unavailable [phone] Jose Alfredo Rudolph MD Primary Care Provider Cristine Thurston MD Unavailable [phone] Encounter Details Date Type Department Care Team (Latest Contact Info) Description 09/09/2018 Orders Only [facility] ProviderDwight MD [address] [place] [address] Social History Tobacco Use Types Packs/Day Years Used Date Smoking Tobacco: Never Assessed Comments Unknown Sex and Gender Information Value Date Recorded Sex Assigned at Not on file Legal Sex Female 11:47 PM ASSOCIATE MARKETING MANAGER Gender Identity Not on file Sexual Orientation Not on file documented as of this encounter Plan of Treatment Not on file documented as of this encounter Procedures Procedure Name Priority Date/Time Associated Diagnosis Comments PROCEDURE - RESULT 09/10/2018 12 :00 AM ASSOCIATE MARKETING MANAGER documented in this encounter Results * PROCEDURE - RESULT (09/10/2018 12:00 AM ASSOCIATE MARKETING MANAGER) Narrative 09/10/2018 12:00 AM ASSOCIATE MARKETING MANAGER Ordered by an unspecified provider. Historical Provider Final Res ult documented in this encounter Visit Diagnoses Not on filedocumented in this encounter Care Teams Well Logging Captain Relationship Specialty Start Date End Date Jose Alfredo Rudolph MD [address] [place] [address] PCP - General 11/27/18 12/31/18 Unknown, Notinfile PCP - General 01/01/19 01/10/19 Jose Alfredo Rudolph MD [address] [place] [address] PCP - General Family Medicine 01/11/19 01/11/19 Jose Alfredo Rudolph MD [address] [place] [address] PCP - General Family Medicine 01/12/19 Jose Alfredo Rudolph MD [address] [place] [address] 01/01/19 Cristine Thurston MD [address] [place] [address] Referring Physician Obstetrics and Gynecology 05/04/22 documented as of this encounter
--- OUTSIDE RECORDS SUMMARY | 2024-12-04 08:40 | XMS_ITS | Clinical Summary ---
Author Organization [facility] [place] Address [facility] [place] [address] Care Team Providers Care Cycle Consultant Name Role Phone Jose Alfredo Rudolph MD Unavailable [phone] Jose Alfredo Rudolph MD Primary Care Provider Cristine Thurston MD Unavailable [phone] Allergies No known active allergies Medications aspirin [...] 150 mg tablet 150 mg daily Active idnuk-ll-0-dha-e cv-bvnbxxr-guo (MEGARED OMEGA-3 KRILL OIL) [id number] mg capsule 500 mg Active polyethylene glycol [...] Department Care Team Description 09/06/2024 11:57 AM [facility] - 09/06/2024 11:59 PM [facility] Hospital Encounter [facility] [place] [address] Screening mammogram, encounter for Discharge Disposition: Discharge to home or self care 09/06/2024 11:57 AM [facility] - 09/06/2024 11:59 PM [facility] [place] [address] Asymptomatic menopausal state; Encounter for screening for [...] on file Legal Sex Female 11:47 PM SIDE TRIMMER Gender Identity Not on file Sexual Orientation [...] Comments Blood Pressure 108/66 11/04/2018 8:45 AM SIDE TRIMMER Pulse 65 11/04/2018 8:45 AM SIDE TRIMMER Temperature 36.4 C (97.5 F) 11/04/2018 8:45 AM SIDE TRIMMER Respiratory Rate - - Oxygen Saturation 93% 11/04/2018 8:45 AM SIDE TRIMMER Inhaled Oxygen Concentration - - Weight 88.5 [...] vaccine 65+ (2 of 2 - PCV) 11/30/2018 11/30/2017 Well Visit 65+ 01/11/2021 Influenza Vaccine (#1) 2024 8, 11/30/2017, 08/03/2014, Additional history exists Breast Cancer Screening-Mammogram 09/06/2025 09/06/2024, 05/06/2023, 05/04/2022, Additional history exists Osteoporosis Screening-Bone Density Scan 09/06/2026 09/06/2024, 05/01/2021, 04/12/2019, Additional history exists Procedures Procedure Name Priority Date/Time Associated Diagnosis Comments SCREENING MAMMOGRAM BILATERAL W ISAIAS Schedule Routine, Read Routine (OP Routine) 09/06/2024 12:30 PM SIDE TRIMMER Screening mammogram, encounter for DEXA AXIAL SKELETON BONE DENSITY 1 OR MORE SITES Schedule Routine, Read Routine (OP Routine) 09/06/2024 12:30 PM SIDE TRIMMER Asymptomatic menopausal state Encounter for screening for osteoporosis from Last 3 Months Results * Screening Mammogram Bilateral W Isaias (09/06/2024 12:30 PM SIDE TRIMMER) Anatomical Region Laterality Modality Breast Bilateral Mammography Impressions 09/06/2024 1:12 PM SIDE TRIMMER BI-RADS ATLAS category (overall): 1 - Negative There is no mammographic evidence of malignancy. A 1 year screening mammogram is recommended. The patient has been or will be contacted. We recommend annual screening mammography for women at average risk of breast cancer beginning at age 40, based on guidelines of the [employer] [place] [employer] (ACR Practice Parameter for the Performance of Screening and Diagnostic Mammography) and [place] [employer]. For women with and elevated risk of breast cancer, please refer to the ACR Practice Parameter for specific screening recommendations. The patient will be entered into a reminder system with a target due date of 1 year for her next screening exam. Narrative 09/06/2024 1:12 PM SIDE TRIMMER Screening Mammogram Bilateral W Isaias: 09/06/24 The [...] 1 or 2 Site (09/06/2024 12:30 PM SIDE TRIMMER) Anatomical Region Laterality Modality Body N/A Mammography 09/06/2024 1:30 PM SIDE TRIMMER Narrative 09/06/2024 1:31 PM SIDE TRIMMER EXAM DESCRIPTION: DEXA AXIAL SKELETON BONE DENSITY 1 OR MORE SITES REASON FOR STUDY: 69 y/o year old F with given history of: Post menopausal status. 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 TW: TW Report ID: [id number] Reading Location: [place] [address] Procedure Note Ana Luisa Mccabe MD - 09/06/2024 EXAM DESCRIPTION: DEXA AXIAL SKELETON BONE DENSITY 1 OR MORE SITES REASON FOR STUDY: 69 y/o year old F with given history of: Post menopausal status. 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 TW: TW Report ID: [id number] Reading Location: [id number] Jarret Diego MD IMG DXA PROCEDURES Final Re sult from Last 3 Months Insurance [facility] PPO [facility] Care Teams Cycle Consultant Relationship Specialty Start Date End Date Jose Alfredo Rudolph MD [address] [place] [address] PCP - General Family Medicine 01/12/19 Jose Alfredo Rudolph MD [address] [place] [address] 01/01/19 Cristine Thurston MD [address] [place] [address] Referring Physician Obstetrics and Gynecology 05/04/22
--- OUTSIDE RECORDS SUMMARY | 2024-12-04 08:40 | XMS_ITS | Encounter Summary ---
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 [facility] [address] [place], [place] [id number] documented as of this encounter Procedures Procedure [...] on filedocumented in this encounter Care Teams Field Marketer Relationship Specialty Start Date End Date Jose Alfredo Rudolph MD [address] [place] [address] PCP - General FAMILY PRACTICE 06/13/16 Kimmy Posadas MD Three [facility]. [facility] [address] [place] [address] Drummond Reach Truck Operator CARDIOVASCULAR DISEASE 03/13/16 documented as of this encounter
--- OUTSIDE RECORDS SUMMARY | 2024-12-04 08:40 | XMS_ITS | Encounter Summary ---
Author Organization [facility] Care Team Providers Care Qual Research Manager Name Role Phone Jose Alfredo Rudolph MD Primary Care Provider Unknown, Notinfile Primary Care Provider Unavail able Jose Alfredo Rudolph MD Primary Care Provider Jose Alfredo Rudolph MD Unavailable [phone] Jose Alfredo Rudolph MD Primary Care Provider Cristine Thurston MD Unavailable [phone] Encounter Details Date Type Department Care Team (Latest Contact Info) Description 11/04/2018 Orders Only [facility] CLINCONV ProviderDwight MD [address] [place] [address] Social History Tobacco Use Types Packs/Day Years Used Date Smoking Tobacco: Never Assessed Comments Unknown Sex and Gender Information Value Date Recorded Sex Assigned at Not on file Legal Sex Female 11:47 PM NUCLEAR CHEMISTRY TECHNICIAN Gender Identity Not on file Sexual Orientation Not on file documented as of this encounter Plan of Treatment Not on file documented as of this encounter Procedures Procedure Name Priority Date/Time Associated Diagnosis Comments PROCEDURE - RESULT 11/06/2018 12 :00 AM NUCLEAR CHEMISTRY TECHNICIAN documented in this encounter Results * PROCEDURE - RESULT (11/06/2018 12:00 AM NUCLEAR CHEMISTRY TECHNICIAN) Narrative 11/06/2018 12:00 AM NUCLEAR CHEMISTRY TECHNICIAN Ordered by an unspecified provider. Historical Provider Final Res ult documented in this encounter Visit Diagnoses Not on filedocumented in this encounter Care Teams Qual Research Manager Relationship Specialty Start Date End Date Jose Alfredo Rudolph MD [address] [place] [address] PCP - General 11/27/18 12/31/18 Unknown, Notinfile PCP - General 01/01/19 01/10/19 Jose Alfredo Rudolph MD [address] [place] [address] PCP - General Family Medicine 01/11/19 01/11/19 Jose Alfredo Rudolph MD [address] [place] [address] PCP - General Family Medicine 01/12/19 Jose Alfredo Rudolph MD [address] [place] [address] 01/01/19 Cristine Thurston MD [address] [place] [address] Referring Physician Obstetrics and Gynecology 05/04/22 documented as of this encounter
--- OUTSIDE RECORDS SUMMARY | 2024-12-04 08:40 | XMS_ITS | Encounter Summary ---
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 [place] [address] documented as of this encounter Procedures Procedure [...] on filedocumented in this encounter Care Teams Hand Hide Stretcher Relationship Specialty Start Date End Date Jose Alfredo Rudolph MD [address] [place] [address] PCP - General FAMILY PRACTICE 06/13/16 Kimmy Posadas MD [facility] [address] [place] [address] Bertrand Sheet Turner CARDIOVASCULAR DISEASE 03/13/16 documented as of this encounter
--- OUTSIDE RECORDS SUMMARY | 2024-12-04 08:40 | XMS_ITS | Clinical Summary ---
Author Organization [facility] Address [facility] [place] [address] Care Team Providers Care Software Engineer Developer Name Role Phone Kimmy Posadas MD Unavailable [phone] Jose Alfredo Rudolph MD Primary Care Provider [phone] Allergies No known active allergies Medications aspirin [...] Essential hypertension Coronary artery disease invo lving [place] coronary artery of [place] heart without angina pectoris Resolved Problems Problem Noted Date Diagnosed Date Resolved Date Pre-operative clearance 08/20/201806/13 Immunizations Name Administration Dates Next Due Influenza (Generic) 07/13/2014 Influenza Adult (Generic) 11/30/2017 Pneumococcal (Pneumovax 23) 11/30/2017 Family History Medical History Relation Comments Diabetes Father Heart Disease Father Hyperlipidemia Father Stroke Father massive mi Maternal Uncle Hypertension Mother RI Mother cause of dyslipidemia Mother Heart Disease [...] 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 [address] [place] [address] Health Maintenance Due Date Last Done Comments [...] patient's age to complete this topic Insurance [facility] MEDICARE PART A Advance Directives * Full Code (Latest Code Status on File) Date Activated Date Inactivated Comments 12/26/2021 3:21 PM 12/27/2021 5:43 PM Care Teams Software Engineer Developer Relationship Specialty Start Date End Date Jose Alfredo Rudolph MD [address] [facility] [address] [place] [address] PCP - General FAMILY PRACTICE 06/13/16 Kimmy Posadas MD [address] [address] [place] Appeals Board Referee CARDIOVASCULAR DISEASE 03/13/16
--- OUTSIDE RECORDS SUMMARY | 2024-12-04 08:40 | XMS_ITS | Encounter Summary ---
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 [facility] [address] [place] [address] documented as of this encounter Procedures Procedure [...] Final * TSH (OUTSIDE LAB) (07/03/2024) Pathologist [facility] TSH 1.49 07/03/2024 Default History Genericprovider LAB-OUTSIDE/ABST RACTED Edited Result - Final * CBC (OUTSIDE LAB) (07/03/2024) Pathologist [facility] WBC 4.3 HGB 13.2 HCT 39.9 PLT 204 07/03/2024 Default History Genericprovider LAB-OUTSIDE/ABST RACTED Edited Result - Final * LIPID PANEL (12/06/2023) [facility] CHOLESTEROL 179 HDL 75 TRIGLYCERIDES 49 NON HDL CHOLESTEROL 104 LDL (CALCULATED) 90 12/06/2023 Result [facility] History Genericprovider LABORATORY Final Result * (ABNORMAL) COMPREHENSIVE METABOLIC PANEL (06/09/2023) Pathologist [facility] SODIUM S/P/B 141 GLUCOSE 87 mg/dL AST 21 BUN 18 CREATININE S/P/B 1.10(A) 0.5 - 1.0 CALCIUM S/P/B 10.1 POTASSIUM S/P/B 3.6 CHLORIDE S/P/B 102 ALT 12 GFR ESTIMATE 55 Narrative Resulting Agency Comment Default History Genericprovider LABORATORY Final Result * LIPID PANEL (06/09/2023) Pathologist [facility] CHOLESTEROL 214 TRIGLYCERIDES 64 HDL 92 LDL (CALCULATED) 107 NON HDL CHOLESTEROL 122 Narrative Resulting Agency Comment Default History Genericprovider LABORATORY Final Result * CBC, MANUAL DIFF (06/09/2023) Pathologist [facility] WBC 3.7 HGB 13.6 HCT 40.3 PLT 212 Narrative Resulting Agency Comment Default History Genericprovider LABORATORY Final Result * LIPID PANEL (02/07/2022) CHOLESTEROL 178 HDL 70 TRIGLYCERIDES 54 NON HDL CHOLESTEROL 108 LDL (CALCULATED) 94 02/07/2022 us Doc [facility] Abstract LABORATORY Final Result documented in this encounter Visit Diagnoses Not on filedocumented in this encounter Care Teams Industrial Security Analyst Relationship Specialty Start Date End Date Jose Alfredo Rudolph MD [address] [place] [address] PCP - General FAMILY PRACTICE 06/13/16 Kimmy Posadas MD Three [facility]. [facility] [address] [place] [address] [place] Soil Science Teacher CARDIOVASCULAR DISEASE 03/13/16 documented as of this encounter
--- OUTSIDE RECORDS SUMMARY | 2024-12-04 08:40 | XMS_ITS | Encounter Summary ---
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 [place] [address] documented as of this encounter Procedures Procedure [...] on filedocumented in this encounter Care Teams Customer Service Analyst Relationship Specialty Start Date End Date Jose Alfredo Rudolph MD [address] [facility] [address] [place] [address] PCP - General FAMILY PRACTICE 06/13/16 Kimmy Posadas MD [address] [place] [address] [place]eca Viscosity Tester CARDIOVASCULAR DISEASE 03/13/16 documented as of this encounter
--- OUTSIDE RECORDS SUMMARY | 2024-12-04 08:40 | XMS_ITS | Referral Summary ---
Author Organization [facility] [place] Address [address] [place] [address] Care Team Providers Care Wire Communications Engineer Name Role Phone Jose Alfredo Rudolph MD Unavailable [phone] Jose Alfredo Rudolph MD Primary Care Provider Cristine Thurston MD Unavailable [phone] Encounters Date Type Department Care Team Description 09/06/2024 11:57 AM WINDOWS ARCHITECT - 09/06/2024 11:59 PM [facility] Hospital Encounter [facility] Medical Office [address] [address] Screening mammogram, encounter for Discharge Disposition: Discharge to home or self care 09/06/2024 11:57 AM WINDOWS ARCHITECT - 09/06/2024 11:59 PM [facility] Hospital Encounter [address] [address] Asymptomatic menopausal state; Encounter for screening for [...] 150 mg tablet 150 mg daily Active ljzvk-ys-0-dha-e cs-rjfpaga-qem (MEGARED OMEGA-3 KRILL OIL) [id number] mg capsule 500 mg Active polyethylene glycol [...] on file Legal Sex Female 11:47 PM WINDOWS ARCHITECT Gender Identity Not on file Sexual Orientation Not on file 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 file Not on file Last Filed Vital Signs Vital Sign Reading Time Taken Comments Blood Pressure 108/66 11/04/2018 8:45 AM WINDOWS ARCHITECT Pulse 65 11/04/2018 8:45 AM WINDOWS ARCHITECT Temperature 36.4 C (97.5 F) 11/04/2018 8:45 AM WINDOWS ARCHITECT Respiratory Rate - - Oxygen Saturation 93% 11/04/2018 8:45 AM WINDOWS ARCHITECT Inhaled Oxygen Concentration - - Weight 88.5 kg (195 lb) 02/14/2020 3:15 PM CDT Height 165.1 cm (5' 5 ) 02/14/2020 3:15 PM CDT Body Mass Index 32.45 02/14/2020 3:15 PM CDT Plan of Treatment Not on file Procedures Procedure Name Priority Date/Time Associated Diagnosis Comments SCREENING MAMMOGRAM BILATERAL W ISAIAS Schedule Routine, Read Routine (OP Routine) 09/06/2024 12:30 PM WINDOWS ARCHITECT Screening mammogram, encounter for DEXA AXIAL SKELETON BONE DENSITY 1 OR MORE SITES Schedule Routine, Read Routine (OP Routine) 09/06/2024 12:30 PM WINDOWS ARCHITECT Asymptomatic menopausal state Encounter for screening for osteoporosis from Last 3 Months Results * Screening Mammogram Bilateral W Isaias (09/06/2024 12:30 PM WINDOWS ARCHITECT) Anatomical Region Laterality Modality Breast Bilateral Mammography Impressions 09/06/2024 1:12 PM WINDOWS ARCHITECT BI-RADS ATLAS category (overall): 1 - Negative There is no mammographic evidence of malignancy. A 1 year screening mammogram is recommended. The patient has been or will be contacted. We recommend annual screening mammography for women at average risk of breast cancer beginning at age 40, based on guidelines of the [place] [employer] (ACR Practice Parameter for the Performance of Screening and Diagnostic Mammography) and [place]. For women with and elevated risk of breast cancer, please refer to the ACR Practice Parameter for specific screening recommendations. The patient will be entered into a reminder system with a target due date of 1 year for her next screening exam. Narrative 09/06/2024 1:12 PM WINDOWS ARCHITECT Screening Mammogram Bilateral W Isaias: 09/06/24 The [...] 1 or 2 Site (09/06/2024 12:30 PM WINDOWS ARCHITECT) Anatomical Region Laterality Modality Body N/A Mammography 09/06/2024 1:30 PM WINDOWS ARCHITECT Narrative 09/06/2024 1:31 PM WINDOWS ARCHITECT EXAM DESCRIPTION: DEXA AXIAL SKELETON BONE DENSITY 1 OR MORE SITES REASON FOR STUDY: 69 y/o year old F with given history of: Post menopausal status. Patient has taken/is taking vitamin-D and calcium Needle Loom Weaver/Model: [employer] Horizon A (S/N [id number]) CLINICAL INFORMATION: Current height: 64.5 inches Maximum [...] Luisa Mccabe M.D. TW: LACEY Report ID: [id number] Reading Location: [id number] Procedure Note Ana Luisa Mccabe MD - 09/06/2024 EXAM DESCRIPTION: DEXA AXIAL SKELETON BONE DENSITY 1 OR MORE SITES REASON FOR STUDY: 69 y/o year old F with given history of: Post menopausal status. Patient has taken/is taking vitamin-D and calcium Needle Loom Weaver/Model: [employer] A (S/N [id number]) CLINICAL INFORMATION: Current height: 64.5 inches Maximum [...] Luisa Mccabe M.D. TW: LACEY Report ID: [id number] Reading Location: [id number] Jarret Diego MD IMG DXA PROCEDURES Final Re sult from Last 3 Months Insurance [facility] PPO [facility] Care Teams Wire Communications Engineer Relationship Specialty Start Date End Date Jose Alfredo Rudolph MD [address] [facility] [address] [place] [address] PCP - General Family Medicine 01/12/19 Jose Alfredo Rudolph MD [address] [place] [address] 01/01/19 Cristine Thurston MD [address] [place] [address] Referring Physician Obstetrics and Gynecology 05/04/22
--- OUTSIDE RECORDS SUMMARY | 2024-12-04 08:40 | XMS_ITS | Encounter Summary ---
Author Organization [facility] Care Team Providers Care Star Route Mail Driver Name Role Phone Jose Alfredo Rudolph MD Primary Care Provider Unknown, Notinfile Primary Care Provider Unavail able Jose Alfredo Rudolph MD Primary Care Provider Jose Alfredo Rudolph MD Unavailable [phone] Jose Alfredo Rudolph MD Primary Care Provider Cristine Thurston MD Unavailable [phone] Encounter Details Date Type Department Care Team (Latest Contact Info) Description 08/21/2018 Orders Only [facility] CLINCONV ProviderDwight MD [address] [place] [address] Social History Tobacco Use Types Packs/Day Years Used Date Smoking Tobacco: Never Assessed Comments Unknown Sex and Gender Information Value Date Recorded Sex Assigned at Not on file Legal Sex Female 11:47 PM NETWORK SOLUTIONS ARCHITECT Gender Identity Not on file Sexual Orientation Not on file documented as of this encounter Plan of Treatment Not on file documented as of this encounter Procedures Procedure Name Priority Date/Time Associated Diagnosis Comments PROCEDURE - RESULT 08/21/2018 12 :00 AM NETWORK SOLUTIONS ARCHITECT documented in this encounter Results * PROCEDURE - RESULT (08/21/2018 12:00 AM NETWORK SOLUTIONS ARCHITECT) Narrative 08/21/2018 12:00 AM NETWORK SOLUTIONS ARCHITECT Ordered by an unspecified provider. Historical Provider Final Res ult documented in this encounter Visit Diagnoses Not on filedocumented in this encounter Care Teams Star Route Mail Driver Relationship Specialty Start Date End Date Jose Alfredo Rudolph MD [address] [place] [address] PCP - General 11/27/18 12/31/18 Unknown, Notinfile PCP - General 01/01/19 01/10/19 Jose Alfredo Rudolph MD [address] [place] [address] PCP - General Family Medicine 01/11/19 01/11/19 Jose Alfredo Rudolph MD [address] [place] [address] PCP - General Family Medicine 01/12/19 Jose Alfredo Rudolph MD [address] [place] [address] 01/01/19 Cristine Thurston MD [address] [place] [address] Referring Physician Obstetrics and Gynecology 05/04/22 documented as of this encounter
--- OUTSIDE RECORDS SUMMARY | 2024-12-04 08:40 | XMS_ITS | Encounter Summary ---
Author Organization [facility] Facility Care Team Providers Care Provider Contracting Consultant Name Role Phone Jose Alfredo Rudolph MD Primary Care Provider Unknown, Notinfile Primary Care Provider Unavail able Jose Alfredo Rudolph MD Primary Care Provider Jose Alfredo Rudolph MD Unavailable [phone] Jose Alfredo Rudolph MD Primary Care Provider Cristine Thurston MD Unavailable [phone] Encounter Details Date Type Department Care Team (Latest Contact Info) Description 09/07/2018 Orders Only [facility] CLINCONV ProviderDwight MD [address] [place] [address] Social History Tobacco Use Types Packs/Day Years Used Date Smoking Tobacco: Never Assessed Comments Unknown Sex and Gender Information Value Date Recorded Sex Assigned at Not on file Legal Sex Female 11:47 PM BAND SAW FILER Gender Identity Not on file Sexual Orientation Not on file documented as of this encounter Plan of Treatment Not on file documented as of this encounter Procedures Procedure Name Priority Date/Time Associated Diagnosis Comments PROCEDURE - RESULT 09/07/2018 12 :00 AM BAND SAW FILER documented in this encounter Results * PROCEDURE - RESULT (09/07/2018 12:00 AM BAND SAW FILER) Narrative 09/07/2018 12:00 AM BAND SAW FILER Ordered by an unspecified provider. Historical Provider Final Res ult documented in this encounter Visit Diagnoses Not on filedocumented in this encounter Care Teams Provider Contracting Consultant Relationship Specialty Start Date End Date Jose Alfredo Rudolph MD [address] [place] [address] PCP - General 11/27/18 12/31/18 Unknown, Notinfile PCP - General 01/01/19 01/10/19 Jose Alfredo Rudolph MD [address] [place] [address] PCP - General Family Medicine 01/11/19 01/11/19 Jose Alfredo Rudolph MD [address] [place] [address] PCP - General Family Medicine 01/12/19 Jose Alfredo Rudolph MD [address] [place] [address] 01/01/19 Cristine Thurston MD [address] [place] [address] Referring Physician Obstetrics and Gynecology 05/04/22 documented as of this encounter
--- OUTSIDE RECORDS SUMMARY | 2024-12-04 08:40 | XMS_ITS | Clinical Summary ---
Author Organization [facility] Address [address], [address] [address] Phone Care Team Providers Care Underground Mining Section Foreman Name Role Phone Jose Alfredo Rudolph MD Primary Care Provider Sylvain Mac DO Unavailable [phone] Medications polyethylene glycol (MIRALAX) Powder Mix the [...] Recently Relevant to Health Maintenance Care Teams Underground Mining Section Foreman Relationship Specialty Start Date End Date Jose Alfredo Rudolph MD [address] [place] [address] PCP - General Family Medicine 12/31/17 Sylvain Mac DO [address] [place] [address] Gastroenterology 03/31/18
--- NOTE | 2024-12-04 09:21 | ECG_ITS ---
Test Date: 2024-12-04 09:34:54 Measurements Intervals [place] Rate: 74 P: 12 WI: 150 QRS: -5 QRSD: 81 T: 23 QT: 364 QTc: 406 Interpretive Statements SINUS RHYTHM LOW QRS VOLTAGE IN PRECORDIAL LEADS BASELINE ARTIFACT- II, III, AVR, AVL, AVF, V2, V4-V6 BORDERLINE ECG No previous ECG available for comparison Electronically Signed On 12-04-2024 13:47:33 BOX TOE MAKER by Kar Carey D.O.
--- OUTSIDE RECORDS SUMMARY | 2024-12-04 09:40 | XMS_ITS | Encounter Summary ---
Author Organization [facility] Facility Care Team Providers Care Splicer Machine Operator Name Role Phone Jose Alfredo Rudolph MD Primary Care Provider Unknown, Notinfile Primary Care Provider Unavail able Jose Alfredo Rudolph MD Primary Care Provider Jose Alfredo Rudolph MD Unavailable [phone] Jose Alfredo Rudolph MD Primary Care Provider Cristine Thurston MD Unavailable [phone] Encounter Details Date Type Department Care Team (Latest Contact Info) Description 08/21/2018 Orders Only [facility] CLINCONV ProviderDwight MD [address] [place] [address] Social History Tobacco Use Types Packs/Day Years Used Date Smoking Tobacco: Never Assessed Comments Unknown Sex and Gender Information Value Date Recorded Sex Assigned at Not on file Legal Sex Female 11:47 PM VICE PRESIDENT FIXED INCOME Gender Identity Not on file Sexual Orientation Not on file documented as of this encounter Plan of Treatment Not on file documented as of this encounter Procedures Procedure Name Priority Date/Time Associated Diagnosis Comments PROCEDURE - RESULT 08/21/2018 12 :00 AM VICE PRESIDENT FIXED INCOME documented in this encounter Results * PROCEDURE - RESULT (08/21/2018 12:00 AM VICE PRESIDENT FIXED INCOME) Narrative 08/21/2018 12:00 AM VICE PRESIDENT FIXED INCOME Ordered by an unspecified provider. Historical Provider Final Res ult documented in this encounter Visit Diagnoses Not on filedocumented in this encounter Care Teams Splicer Machine Operator Relationship Specialty Start Date End Date Jose Alfredo Rudolph MD [address] [place] [address] PCP - General 11/27/18 12/31/18 Unknown, Notinfile PCP - General 01/01/19 01/10/19 Jose Alfredo Rudolph MD [address] [place] [address] PCP - General Family Medicine 01/11/19 01/11/19 Jose Alfredo Rudolph MD [address] [place] [address] PCP - General Family Medicine 01/12/19 Jose Alfredo Rudolph MD [address] [place] [address] 01/01/19 Cristine Thurston MD [address] [place] [address] Referring Physician Obstetrics and Gynecology 05/04/22 documented as of this encounter
--- OUTSIDE RECORDS SUMMARY | 2024-12-04 09:40 | XMS_ITS | Encounter Summary ---
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 [facility] [address] [place], [place] [id number] documented as of this encounter Procedures Procedure [...] on filedocumented in this encounter Care Teams Telegraph Repeater Mechanic Relationship Specialty Start Date End Date Jose Alfredo Rudolph MD [address] [place] [address] PCP - General FAMILY PRACTICE 06/13/16 Kimmy Posadas MD Three [facility]. [facility] [address] [place] [address] [employer] Storeperson CARDIOVASCULAR DISEASE 03/13/16 documented as of this encounter
--- OUTSIDE RECORDS SUMMARY | 2024-12-04 09:40 | XMS_ITS | Encounter Summary ---
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 [facility] [address] [place] [address] documented as of this encounter Procedures Procedure [...] Final * TSH (OUTSIDE LAB) (07/03/2024) Pathologist [facility] TSH 1.49 07/03/2024 Default History Genericprovider LAB-OUTSIDE/ABST RACTED Edited Result - Final * CBC (OUTSIDE LAB) (07/03/2024) Pathologist [facility] WBC 4.3 HGB 13.2 HCT 39.9 PLT 204 07/03/2024 Default History Genericprovider LAB-OUTSIDE/ABST RACTED Edited Result - Final * LIPID PANEL (12/06/2023) [facility] CHOLESTEROL 179 HDL 75 TRIGLYCERIDES 49 NON HDL CHOLESTEROL 104 LDL (CALCULATED) 90 12/06/2023 Result [facility] History Genericprovider LABORATORY Final Result * (ABNORMAL) COMPREHENSIVE METABOLIC PANEL (06/09/2023) Pathologist [facility] SODIUM S/P/B 141 GLUCOSE 87 mg/dL AST 21 BUN 18 CREATININE S/P/B 1.10(A) 0.5 - 1.0 CALCIUM S/P/B 10.1 POTASSIUM S/P/B 3.6 CHLORIDE S/P/B 102 ALT 12 GFR ESTIMATE 55 Narrative Resulting Agency Comment Default History Genericprovider LABORATORY Final Result * LIPID PANEL (06/09/2023) Pathologist [facility] CHOLESTEROL 214 TRIGLYCERIDES 64 HDL 92 LDL (CALCULATED) 107 NON HDL CHOLESTEROL 122 Narrative Resulting Agency Comment Default History Genericprovider LABORATORY Final Result * CBC, MANUAL DIFF (06/09/2023) Pathologist [facility] WBC 3.7 HGB 13.6 HCT 40.3 PLT 212 Narrative Resulting Agency Comment Default History Genericprovider LABORATORY Final Result * LIPID PANEL (02/07/2022) CHOLESTEROL 178 HDL 70 TRIGLYCERIDES 54 NON HDL CHOLESTEROL 108 LDL (CALCULATED) 94 02/07/2022 us Doc [facility] Abstract LABORATORY Final Result documented in this encounter Visit Diagnoses Not on filedocumented in this encounter Care Teams Bundle Cutter Relationship Specialty Start Date End Date Jose Alfredo Rudolph MD [address] [place] [address] PCP - General FAMILY PRACTICE 06/13/16 Kimmy Posadas MD Three [facility]. [facility] [address] [place] [address] [place] Is Support Analyst CARDIOVASCULAR DISEASE 03/13/16 documented as of this encounter
--- OUTSIDE RECORDS SUMMARY | 2024-12-04 09:40 | XMS_ITS | Encounter Summary ---
Author Organization [facility] Facility Care Team Providers Care Road Worker Name Role Phone Jose Alfredo Rudolph MD Primary Care Provider Unknown, Notinfile Primary Care Provider Unavail able Jose Alfredo Rudolph MD Primary Care Provider Jose Alfredo Rudolph MD Unavailable [phone] Jose Alfredo Rudolph MD Primary Care Provider Cristine Thurston MD Unavailable [phone] Encounter Details Date Type Department Care Team (Latest Contact Info) Description 09/07/2018 Orders Only [facility] CLINCONV ProviderDwight MD [address] [place] [address] Social History Tobacco Use Types Packs/Day Years Used Date Smoking Tobacco: Never Assessed Comments Unknown Sex and Gender Information Value Date Recorded Sex Assigned at Not on file Legal Sex Female 11:47 PM GLOBAL SUPPLY CHAIN DIRECTOR Gender Identity Not on file Sexual Orientation Not on file documented as of this encounter Plan of Treatment Not on file documented as of this encounter Procedures Procedure Name Priority Date/Time Associated Diagnosis Comments PROCEDURE - RESULT 09/07/2018 12 :00 AM GLOBAL SUPPLY CHAIN DIRECTOR documented in this encounter Results * PROCEDURE - RESULT (09/07/2018 12:00 AM GLOBAL SUPPLY CHAIN DIRECTOR) Narrative 09/07/2018 12:00 AM GLOBAL SUPPLY CHAIN DIRECTOR Ordered by an unspecified provider. Historical Provider Final Res ult documented in this encounter Visit Diagnoses Not on filedocumented in this encounter Care Teams Road Worker Relationship Specialty Start Date End Date Jose Alfredo Rudolph MD [address] [place] [address] PCP - General 11/27/18 12/31/18 Unknown, Notinfile PCP - General 01/01/19 01/10/19 Jose Alfredo Rudolph MD [address] [place] [address] PCP - General Family Medicine 01/11/19 01/11/19 Jose Alfredo Rudolph MD [address] [place] [address] PCP - General Family Medicine 01/12/19 Jose Alfredo Rudolph MD [address] [place] [address] 01/01/19 Cristine Thurston MD [address] [place] [address] Referring Physician Obstetrics and Gynecology 05/04/22 documented as of this encounter
--- OUTSIDE RECORDS SUMMARY | 2024-12-04 09:40 | XMS_ITS | Clinical Summary ---
Author Organization [facility] Address [facility] [place] [address] Care Team Providers Care Dry Pan Operator Name Role Phone Jose Alfredo Rudolph MD Unavailable [phone] Jose Alfredo Rudolph MD Primary Care Provider Cristine Thurston MD Unavailable [phone] Allergies No known active allergies Medications aspirin [...] 150 mg tablet 150 mg daily Active itony-ej-[id number]-dha-e ly-[id number]-fkd (MEGARED OMEGA-3 KRILL OIL) [id number] mg capsule 500 mg Active polyethylene glycol [...] Department Care Team Description 09/06/2024 11:57 AM [facility] - 09/06/2024 11:59 PM [facility] Hospital Encounter [facility] [place] [place] [address] Screening mammogram, encounter for Discharge Disposition: Discharge to home or self care 09/06/2024 11:57 AM [facility] - 09/06/2024 11:59 PM [facility] [place] [place] [address] Asymptomatic menopausal state; Encounter for screening for [...] on file Legal Sex Female 11:47 PM SENIOR TECHNICAL PROJECT MANAGER Gender Identity Not on file Sexual [...] Comments Blood Pressure 108/66 11/04/2018 8:45 AM SENIOR TECHNICAL PROJECT MANAGER Pulse 65 11/04/2018 8:45 AM SENIOR TECHNICAL PROJECT MANAGER Temperature 36.4 C (97.5 F) 11/04/2018 8:45 AM SENIOR TECHNICAL PROJECT MANAGER Respiratory Rate - - Oxygen Saturation 93% 11/04/2018 8:45 AM SENIOR TECHNICAL PROJECT MANAGER Inhaled Oxygen Concentration - - Weight 88.5 [...] Read Routine (OP Routine) 09/06/2024 12:30 PM SENIOR TECHNICAL PROJECT MANAGER Screening mammogram, encounter for DEXA AXIAL SKELETON BONE DENSITY 1 OR MORE SITES Schedule Routine, Read Routine (OP Routine) 09/06/2024 12:30 PM SENIOR TECHNICAL PROJECT MANAGER Asymptomatic menopausal state Encounter for screening for osteoporosis from Last 3 Months Results * Screening Mammogram Bilateral W Isaias (09/06/2024 12:30 PM SENIOR TECHNICAL PROJECT MANAGER) Anatomical Region Laterality Modality Breast Bilateral Mammography Impressions 09/06/2024 1:12 PM SENIOR TECHNICAL PROJECT MANAGER BI-RADS ATLAS category (overall): 1 - Negative There is no mammographic evidence of malignancy. A 1 year screening mammogram is recommended. The patient has been or will be contacted. We recommend annual screening mammography for women at average risk of breast cancer beginning at age 40, based on guidelines of the [employer] (ACR Practice Parameter for the Performance of Screening and Diagnostic Mammography) and [employer]. For women with and elevated risk of breast cancer, please refer to the ACR Practice Parameter for specific screening recommendations. The patient will be entered into a reminder system with a target due date of 1 year for her next screening exam. Narrative 09/06/2024 1:12 PM SENIOR TECHNICAL PROJECT MANAGER Screening Mammogram Bilateral W Isaias: 09/06/24 The [...] 1 or 2 Site (09/06/2024 12:30 PM SENIOR TECHNICAL PROJECT MANAGER) Anatomical Region Laterality Modality Body N/A Mammography 09/06/2024 1:30 PM SENIOR TECHNICAL PROJECT MANAGER Narrative 09/06/2024 1:31 PM SENIOR TECHNICAL PROJECT MANAGER EXAM DESCRIPTION: DEXA AXIAL SKELETON BONE DENSITY 1 OR MORE SITES REASON FOR STUDY: 69 y/o year old F with given history of: Post menopausal status. Patient has taken/is taking vitamin-D and calcium Residential Sales Manager/Model: [employer] Horizon A (S/N [id number]) CLINICAL INFORMATION: Current height: 64.5 inches Maximum [...] Luisa Mccabe M.D. TW: TW Report ID: [id number] Reading Location: [place] [address] Procedure Note Ana Luisa Mccabe MD - 09/06/2024 EXAM DESCRIPTION: DEXA AXIAL SKELETON BONE DENSITY 1 OR MORE SITES REASON FOR STUDY: 69 y/o year old F with given history of: Post menopausal status. Patient has taken/is taking vitamin-D and calcium Residential Sales Manager/Model: [employer] Horizon A (S/N [id number]) CLINICAL INFORMATION: Current height: 64.5 inches Maximum [...] Luisa Mccabe M.D. TW: TW Report ID: [id number] Reading Location: [id number] Jarret Diego MD IMG DXA PROCEDURES Final Re sult from Last 3 Months Insurance [facility] P[facility] Care Teams Dry Pan Operator Relationship Specialty Start Date End Date Jose Alfredo Rudolph MD [address] [place] [address] PCP - General Family Medicine 01/12/19 Jose Alfredo Rudolph MD [address] [place] [address] 01/01/19 Cristine Thurston MD [address] [place] [address] Referring Physician Obstetrics and Gynecology 05/04/22
--- OUTSIDE RECORDS SUMMARY | 2024-12-04 09:40 | XMS_ITS | Encounter Summary ---
Author Organization [facility] Facility Care Team Providers Care Grooming Salon Manager Name Role Phone Jose Alfredo Rudolph MD Primary Care Provider Unknown, Notinfile Primary Care Provider Unavail able Jose Alfredo Rudolph MD Primary Care Provider Jose Alfredo Rudolph MD Unavailable [phone] Jose Alfredo Rudolph MD Primary Care Provider Cristine Thurston MD Unavailable [phone] Encounter Details Date Type Department Care Team (Latest Contact Info) Description 09/09/2018 Orders Only [facility] CLINCONV ProviderDwight MD [address] [place] [address] Social History Tobacco Use Types Packs/Day Years Used Date Smoking Tobacco: Never Assessed Comments Unknown Sex and Gender Information Value Date Recorded Sex Assigned at Not on file Legal Sex Female 11:47 PM MOLD FILLING OPERATOR Gender Identity Not on file Sexual Orientation Not on file documented as of this encounter Plan of Treatment Not on file documented as of this encounter Procedures Procedure Name Priority Date/Time Associated Diagnosis Comments PROCEDURE - RESULT 09/10/2018 12 :00 AM MOLD FILLING OPERATOR documented in this encounter Results * PROCEDURE - RESULT (09/10/2018 12:00 AM MOLD FILLING OPERATOR) Narrative 09/10/2018 12:00 AM MOLD FILLING OPERATOR Ordered by an unspecified provider. Historical Provider Final Res ult documented in this encounter Visit Diagnoses Not on filedocumented in this encounter Care Teams Grooming Salon Manager Relationship Specialty Start Date End Date Jose Alfredo Rudolph MD [address] [place] [address] PCP - General 11/27/18 12/31/18 Unknown, Notinfile PCP - General 01/01/19 01/10/19 Jose Alfredo Rudolph MD [address] [place] [address] PCP - General Family Medicine 01/11/19 01/11/19 Jose Alfredo Rudolph MD [address] [place] [address] PCP - General Family Medicine 01/12/19 Jose Alfredo Rudolph MD [address] [place] [address] 01/01/19 Cristine Thurston MD [address] [place] [address] Referring Physician Obstetrics and Gynecology 05/04/22 documented as of this encounter
--- OUTSIDE RECORDS SUMMARY | 2024-12-04 09:40 | XMS_ITS | Encounter Summary ---
Author Organization 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 [place] [address] documented as of this encounter Procedures Procedure [...] on filedocumented in this encounter Care Teams Hander In Relationship Specialty Start Date End Date Jose Alfredo Rudolph MD [address] [facility] [address] [place] [address] PCP - General FAMILY PRACTICE 06/13/16 Kimmy Posadas MD [address] [place] [address] [facility] CARDIOVASCULAR DISEASE 03/13/16 documented as of this encounter
--- OUTSIDE RECORDS SUMMARY | 2024-12-04 09:40 | XMS_ITS | Encounter Summary ---
Author Organization [facility] Facility Care Team Providers Care Cost Control Specialist Name Role Phone Jose Alfredo Rudolph MD Primary Care Provider Unknown, Notinfile Primary Care Provider Unavail able Jose Alfredo Rudolph MD Primary Care Provider Jose Alfredo Rudolph MD Unavailable [phone] Jose Alfredo Rudolph MD Primary Care Provider Cristine Thurston MD Unavailable [phone] Encounter Details Date Type Department Care Team (Latest Contact Info) Description 11/04/2018 Orders Only [facility] CLINCON[facility] ProviderDwight MD [address] [place] [address] Social History Tobacco Use Types Packs/Day Years Used Date Smoking Tobacco: Never Assessed Comments Unknown Sex and Gender Information Value Date Recorded Sex Assigned at Not on file Legal Sex Female 11:47 PM COMPUTING SYSTEMS MECHANIC Gender Identity Not on file Sexual Orientation Not on file documented as of this encounter Plan of Treatment Not on file documented as of this encounter Procedures Procedure Name Priority Date/Time Associated Diagnosis Comments PROCEDURE - RESULT 11/06/2018 12 :00 AM COMPUTING SYSTEMS MECHANIC documented in this encounter Results * PROCEDURE - RESULT (11/06/2018 12:00 AM COMPUTING SYSTEMS MECHANIC) Narrative 11/06/2018 12:00 AM COMPUTING SYSTEMS MECHANIC Ordered by an unspecified provider. Historical Provider Final Res ult documented in this encounter Visit Diagnoses Not on filedocumented in this encounter Care Teams Cost Control Specialist Relationship Specialty Start Date End Date Jose Alfredo Rudolph MD [address] [place] [address] PCP - General 11/27/18 12/31/18 Unknown, Notinfile PCP - General 01/01/19 01/10/19 Jose Alfredo Rudolph MD [address] [place] [address] PCP - General Family Medicine 01/11/19 01/11/19 Jose Alfredo Rudolph MD [address] [place] [address] PCP - General Family Medicine 01/12/19 Jose Alfredo Rudolph MD [address] [place] [address] 01/01/19 Cristine Thurston MD [address] [place] [address] Referring Physician Obstetrics and Gynecology 05/04/22 documented as of this encounter
--- OUTSIDE RECORDS SUMMARY | 2024-12-04 09:40 | XMS_ITS | Encounter Summary ---
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 [place] [address] documented as of this encounter Procedures Procedure [...] on filedocumented in this encounter Care Teams Recovery Unit Operator Relationship Specialty Start Date End Date Jose Alfredo Rudolph MD [address] [place] [address] PCP - General FAMILY PRACTICE 06/13/16 Kimmy Posadas MD [facility] [address] [place] [address] Sod Length Control Tester CARDIOVASCULAR DISEASE 03/13/16 documented as of this encounter
--- OUTSIDE RECORDS SUMMARY | 2024-12-04 09:40 | XMS_ITS | Clinical Summary ---
Author Organization [facility] Address [address], [address] [address] Phone Care Team Providers Care Clerk Guide Name Role Phone Jose Alfredo Rudolph MD Primary Care Provider Sylvain Mac DO Unavailable [phone] Medications polyethylene glycol (MIRALAX) Powder Mix [...] Recently Relevant to Health Maintenance Care Teams Clerk Guide Relationship Specialty Start Date End Date Jose Alfredo Rudolph MD [address] [place] [address] PCP - General Family Medicine 12/31/17 Sylvain Mac DO [address] [place] [address] Gastroenterology 03/31/18
--- OUTSIDE RECORDS SUMMARY | 2024-12-04 09:40 | XMS_ITS | Referral Summary ---
Author Organization [facility] Address [address] [place] [address] Care Team Providers Care Service Aide Name Role Phone Jose Alfredo Rudolph MD Unavailable [phone] Jose Alfredo Rudolph MD Primary Care Provider Cristine Thurston MD Unavailable [phone] Encounters Date Type Department Care Team Description 09/06/2024 11:57 AM HOSPICE FELLOW - 09/06/2024 11:59 PM [facility] Hospital Encounter [facility] [address] [address] Screening mammogram, encounter for Discharge Disposition: Discharge to home or self care 09/06/2024 11:57 AM HOSPICE FELLOW - 09/06/2024 11:59 PM [facility] Hospital Encounter [address] [address] Asymptomatic menopausal state; Encounter for screening for [...] 150 mg tablet 150 mg daily Active geoed-pm-3-dha-e eg-bpmmsxq-vgc (MEGARED OMEGA-3 KRILL OIL) [id number] mg capsule 500 mg Active polyethylene glycol [...] on file Legal Sex Female 11:47 PM HOSPICE FELLOW Gender Identity Not on file Sexual Orientation Not on file 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 file Not on file Last Filed Vital Signs Vital Sign Reading Time Taken Comments Blood Pressure 108/66 11/04/2018 8:45 AM HOSPICE FELLOW Pulse 65 11/04/2018 8:45 AM HOSPICE FELLOW Temperature 36.4 C (97.5 F) 11/04/2018 8:45 AM HOSPICE FELLOW Respiratory Rate - - Oxygen Saturation 93% 11/04/2018 8:45 AM HOSPICE FELLOW Inhaled Oxygen Concentration - - Weight 88.5 kg (195 lb) 02/14/2020 3:15 PM CDT Height 165.1 cm (5' 5 ) 02/14/2020 3:15 PM CDT Body Mass Index 32.45 02/14/2020 3:15 PM CDT Plan of Treatment Not on file Procedures Procedure Name Priority Date/Time Associated Diagnosis Comments SCREENING MAMMOGRAM BILATERAL W ISAIAS Schedule Routine, Read Routine (OP Routine) 09/06/2024 12:30 PM HOSPICE FELLOW Screening mammogram, encounter for DEXA AXIAL SKELETON BONE DENSITY 1 OR MORE SITES Schedule Routine, Read Routine (OP Routine) 09/06/2024 12:30 PM HOSPICE FELLOW Asymptomatic menopausal state Encounter for screening for osteoporosis from Last 3 Months Results * Screening Mammogram Bilateral W Isaias (09/06/2024 12:30 PM HOSPICE FELLOW) Anatomical Region Laterality Modality Breast Bilateral Mammography Impressions 09/06/2024 1:12 PM HOSPICE FELLOW BI-RADS ATLAS category (overall): 1 - Negative There is no mammographic evidence of malignancy. A 1 year screening mammogram is recommended. The patient has been or will be contacted. We recommend annual screening mammography for women at average risk of breast cancer beginning at age 40, based on guidelines of the [place] [employer] (ACR Practice Parameter for the Performance of Screening and Diagnostic Mammography) and [place] [employer]. For women with and elevated risk of breast cancer, please refer to the ACR Practice Parameter for specific screening recommendations. The patient will be entered into a reminder system with a target due date of 1 year for her next screening exam. Narrative 09/06/2024 1:12 PM HOSPICE FELLOW Screening Mammogram Bilateral W Isaias: 09/06/24 The [...] 1 or 2 Site (09/06/2024 12:30 PM HOSPICE FELLOW) Anatomical Region Laterality Modality Body N/A Mammography 09/06/2024 1:30 PM HOSPICE FELLOW Narrative 09/06/2024 1:31 PM HOSPICE FELLOW EXAM DESCRIPTION: DEXA AXIAL SKELETON BONE DENSITY 1 OR MORE SITES REASON FOR STUDY: 69 y/o year old F with given history of: Post menopausal status. Patient has taken/is taking vitamin-D and calcium Move Coordinator/Model: Zettaset Horizon A (S/N [id number]) CLINICAL INFORMATION: Current height: 64.5 inches Maximum [...] Luisa Mccabe M.D. TW: LACEY Report ID: [id number] Reading Location: [id number] Procedure Note Ana Luisa Mccabe MD - 09/06/2024 EXAM DESCRIPTION: DEXA AXIAL SKELETON BONE DENSITY 1 OR MORE SITES REASON FOR STUDY: 69 y/o year old F with given history of: Post menopausal status. Patient has taken/is taking vitamin-D and calcium Move Coordinator/Model: Terra-Gen Power A (S/N [id number]) CLINICAL INFORMATION: Current height: 64.5 inches Maximum [...] Luisa Mccabe M.D. TW: LACEY Report ID: [id number] Reading Location: [id number] Jarret Diego MD IMG DXA PROCEDURES Final Re sult from Last 3 Months Insurance [facility] PPO [facility] Care Teams Service Aide Relationship Specialty Start Date End Date Jose Alfredo Rudolph MD [address] [email or web address] [address] [place] [address] PCP - General Family Medicine 01/12/19 Jose Alfredo Rudolph MD [address] [place] [address] 01/01/19 Cristine Thurston MD [address] [place] [address] Referring Physician Obstetrics and Gynecology 05/04/22
--- OUTSIDE RECORDS SUMMARY | 2024-12-04 09:40 | XMS_ITS | Clinical Summary ---
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 Resolved Problems Problem Noted Date Diagnosed Date Resolved Date Pre-operative clearance 08/20/201806/13 Immunizations Name Administration Dates Next Due Influenza (Generic) 07/13/2014 Influenza Adult (Generic) 11/30/2017 Pneumococcal (Pneumovax 23) 11/30/2017 Family History Medical History Relation Comments Diabetes Father Heart Disease Father Hyperlipidemia Father Stroke Father massive mi Maternal Uncle Hypertension Mother CO Mother cause of dyslipidemia Mother Heart Disease [...] 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 [address] [place] [address] Health Maintenance Due Date Last Done Comments [...] patient's age to complete this topic Insurance [facility] MEDICARE PART A Advance Directives * Full Code (Latest Code Status on File) Date Activated Date Inactivated Comments 12/26/2021 3:21 PM 12/27/2021 5:43 PM Care Teams Dross Skimmer Relationship Specialty Start Date End Date Jose Alfredo Rudolph MD [address] [facility] [address] [place] [address] PCP - General FAMILY PRACTICE 06/13/16 Kimmy Posadas MD [address] [address] [place] Journeyman Press Operator CARDIOVASCULAR DISEASE 03/13/16
--- NOTE | 2024-12-04 10:08 | ED.GENADULT ---
HPI - General Adult General Chief complaint: Weakness Stated complaint: weakness (flu positive) Time Seen by Provider: 12/04/24 09:18 History of Present Illness HPI narrative: 69-year-old female presenting to the emergency department for evaluation for persistent exertional shortness of breath. Patient was symptomatic with the flu last Friday she had follow-up with primary care physician on Friday and did test positive on Friday. Patient was instructed to present to the emergency department she has any worsening symptoms. Patient states she is having some exertional shortness of breath and increased generalized weakness. Patient denies any chest pain with this. Patient denies any recent fevers. Patient did have a fever earlier in the illness but no longer current the. Patient does have history of hypertension does follow-up with cardiology. Patient denies any other significant past medical history. Related Data Allergies Allergy/AdvReac Type Severity Reaction Status Date / Time MORIAH Inhibitors Allergy Unknown Unknown Verified 10/08/24 13:39 Review of Systems Review of Systems: All systems reviewed & are unremarkable except as noted in HPI and below PMFSH Past Medical History Medical History Obesity Chronic kidney disease, stage III (moderate) Coronary artery disease involving [place]z [place] coronary artery of [place] heart Hy ht/kd NOS I-IV w/o hf HLD (hyperlipidemia) IFG (impaired fasting glucose) Surgical History Surgical History History of hysterectomy History of cholecystectomy History of fusion of cervical spine History of delivery History of knee replacement H/O arthroscopic knee surgery Right Family History Family History Father Patient's father is in good health Family history of type 2 diabetes mellitus Family history of heart disease in male family member before age 55 Diabetes mellitus Family history of hypercholesterolemia Hypertension Cerebrovascular accident Mother Patient's mother is Family history of heart disease in male family member before age 55 Family history of hypercholesterolemia Hypertension Heart disease Other Family history of malignant neoplasm of breast Social History Social History Smoking status: Never smoker Second hand tobacco smoke exposure: No Alcohol intake: current Alcohol use details: social drinker Substance use: never Substance use type: does not use Do You Feel Safe in your Home?: Yes Lack of Transportation: No Lack of Food: Never True Current Housing: I Have Housing Concerned About Future Housing: No Difficulty Paying Gas/Electric Bills: No Difficulty Paying for Meds: No Currently Unemployed: No Education: High School Diploma/GED Difficulty w/ Childcare or Family Care: No Living arrangements: with family Occupation/Education: occupation Gender identity (if verbalized by the patient): Female Exam Narrative: APPEARANCE: Well appearing, no pain, no distress, well-nourished. HEAD: normocephalic, atraumatic. EYES: PERRLA/EOMI, conjunctivae clear. NOSE: Normal no drainage EARS:TMS clear with good light reflex. THROAT: Pharynx clear, no exudate. NECK: Supple. No adenopathy, no masses. RESPIRATORY: Airway patent, respirations nonlabored. Clear to auscultation bilaterally, no rales, rhonchi, wheezing. CARDIOVASCULAR: Regular rate and rhythm without murmurs rubs or gallops. ABDOMINAL: Soft, nontender, nondistended, normal bowel sounds MUSCULOSKELETAL: Moves all extremities. Strength/ROM intact, No edema, No calf tenderness. NEURO: Alert. Cranial nerves II through XII intact. Grossly intact SKIN: Warm, dry. Normal Color Course Vital Signs Vital signs: Vital Signs Temperature 97.9 F 12/04/24 08:38 Pulse Rate 81 12/04/24 08:38 Respiratory Rate 18 12/04/24 08:38 Blood Pressure 137/83 12/04/24 08:38 Pulse Oximetry 99 12/04/24 08:38 Oxygen Delivery Room Air 12/04/24 08:38 Temperature 97.9 F 12/04/24 08:38 Pulse Rate 76 12/04/24 13:35 Respiratory Rate 18 12/04/24 13:35 Blood Pressure 117/77 12/04/24 13:35 Pulse Oximetry 100 12/04/24 13:35 Oxygen Delivery Room Air 12/04/24 08:38 Medical Decision Making MDM Narrative Medical decision making narrative: 69-year-old female present to the emergency department for evaluation for exertional shortness of breath after the fluid. Patient was able to ambulate in the emergency department with a stable heart rate and stable pulse ox. Patient was not tachycardic nor hypoxic. Chest x-ray showed no acute cardiopulmonary mallet. Patient did have recent influenza. Patient did have shortness of breath with ambulation even though she had normal vital signs, CT chest diagnostic was ordered and showed no underlying pneumonia. Patient did feel mildly improved with the breathing treatment. Patient will be provided a spacer and albuterol inhaler for home. Patient family were updated on the results of the workup and plan for treatment for home, they were also encouraged to return to the emergency department the patient had worsening symptoms. All questions concerns were addressed. Differential Diagnosis Differential Diagnosis: Influenza, pneumonia, pleural effusion, pulmonary edema Vital Signs Vital Signs: Vital Signs Temperature 97.9 F 12/04/24 08:38 Pulse Rate 81 12/04/24 08:38 Respiratory Rate 18 12/04/24 08:38 Blood Pressure 137/83 12/04/24 08:38 Pulse Oximetry 99 12/04/24 08:38 Oxygen Delivery Room Air 12/04/24 08:38 Temperature 97.9 F 12/04/24 08:38 Pulse Rate 76 12/04/24 13:35 Respiratory Rate 18 12/04/24 13:35 Blood Pressure 117/77 12/04/24 13:35 Pulse Oximetry 100 12/04/24 13:35 Oxygen Delivery Room Air 12/04/24 08:38 Imaging Data Radiologist's impression: Impressions Chest X-Ray 12/04/24 10:27 IMPRESSION: 1. No acute cardiopulmonary disease. Chest CT 12/04/24 12:49 IMPRESSION: 1. No acute cardiopulmonary disease. Discharge Plan Discharge Clinical Impression: Influenza A, Shortness of breath Patient Disposition: Home, Self-Care Condition: Stable Instructions: Antibiotic Form, Influenza (ED), Viral Syndrome (ED) Additional Instructions: Albuterol inhaler for shortness of breath, use with spacer. Have close follow-up with her primary care physician. If you feel you are having worsening symptoms then please call or return to the emergency department. Patient Language: Greek Prescriptions: New albuterol sulfate 90 mcg/actuation HFA aerosol inhaler 1 puff inhalation QID Qty: 6.7 0RF No Action nitroglycerin 0.4 mg tablet, sublingual 0.4 mg sublingual Q5M PRN (Reason: chest pain) Qty: 30 1RF Rx Instructions: do not exceed 3 doses per episode triamterene-hydrochlorothiazid 37.5-25 mg tablet 1 tablet PO BID Qty: 180 2RF diltiazem HCl 120 mg capsule,ext.rel 24h degradable 120 mg PO DAILY Qty: 90 0RF atorvastatin 20 mg tablet 20 mg PO BID Qty: 180 2RF irbesartan 150 mg tablet See Rx Instructions .ROUTE .COMPLEX Qty: 90 2RF Dose Instruction: TAKE 1 TABLET DAILY Rx Instructions: TAKE 1 TABLET DAILY benzonatate 200 mg capsule 200 mg PO TID PRN (Reason: cough) 7 Days Qty: 20 0RF Follow-up/Referrals: Jose Alfredo Rudolph MD [Primary Care Provider] -
[2024-12-04] MEDS: ALBUTEROL SULFATE NEB 2.5 MG/3 ML INH INHALATION (10:15)
[2024-12-04] MEDS: SODIUM CHLORIDE 0.9% IV 1,000 ML 999 ML IV CONT (10:34)
== END 2024-12-04 13:37 | disposition home or self-care (01) ==
PROVIDERS: Emergency Provider Emergency Medicine; PCP Family Medicine
DX: J10.1 Influenza due to other identified influenza virus with other respiratory manifestations (principal); R06.02 Shortness of breath; I12.9 Hypertensive chronic kidney disease with stage 1 through stage 4 chronic kidney disease, or unspecified chronic kidney disease; N18.30 Chronic kidney disease, stage 3 unspecified; E78.5 Hyperlipidemia, unspecified; E66.9 Obesity, unspecified; Z68.29 Body mass index [BMI] 29.0-29.9, adult; Z98.1 Arthrodesis status; Z96.659 Presence of unspecified artificial knee joint; Z90.710 Acquired absence of both cervix and uterus; Z90.49 Acquired absence of other specified parts of digestive tract; Z79.899 Other long term (current) drug therapy
CPT/HCPCS: 71045; 71250; 93005; 94640; 94664; 96360; 99284; J7030

== ENCOUNTER 2025-04-23 09:46 | Emergency (ER) | payer BC, SELFPAY ==
--- NOTE | ~2025-04-23 | CT_ITS ---
EXAMINATION: CT cervical spine wo con DATE: 04/23/2025 10:27 INDICATION: Fall with head injury TECHNIQUE: Computed tomography (CT) of the cervical spine was performed without intravenous contrast. Automated exposure control and iterative reconstruction technique were employed. The dose-length pro duct was 355.90 mGy-cm. COMPARISON: None FINDINGS: Straightening of the normal cervical lordosis. Vertebral body heights are normal. No fracture. Postop erative change of prior C3-C7 laminectomies and instrumented and solidly fused C3-T1 posterior spinal fusion with bilateral vertical rods with lateral mass screws on the left and right at C3 through C5 and with bilateral pedicle screws at C7 and T1. There is severe narrowing of the C3-C4 through T1-T2 disc spaces as well as at the T3-T4 disc spaces. There is osseous fusion across portions of disc spac es and uncovertebral joints from C3 through T1. Mild disc height loss at C2-C3 and moderate disc heig ht loss at T3-T4. 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 There is moderate neural foraminal stenosis bilaterally at T1-T2 and on the right at T3-T4 w ith mild neural from stenosis at many of the cervical neural foramina. Visualized upper lungs are alona ar. Cervical soft tissues are unremarkable. IMPRESSION: 1. Severe cervical and upper thoracic spondylosis with C3-C7 and neck kidneys and C3- T1 instrumented posterior spinal fusion. No acute osseous abnormality. Reviewed, dictated and finalized at location A. IMPRESSION: 1. Severe cervical and upper thoracic spondylosis with C3-C7 and neck kidneys a nd C3- T1 instrumented posterior spinal fusion. No acute osseous abnormality.
--- NOTE | ~2025-04-23 | CT_ITS ---
EXAMINATION: CT brain wo con DATE: 04/23/2025 10:26 INDICATION: Fall with head injury and forehead hematoma. TECHNIQUE: Computed tomography (CT) of the head was performed without intravenous contrast. Sagittal and coronal reconstructions were performed. The mA was adjusted according to patient size. Iterative reconstruction technique was employed. The dose-length product was 605.33 mGy-cm. COMPARISON: head CT dated 12/06/2024 FINDINGS: Moderate-sized anterior left frontal scalp hematoma at the forehead. No fracture. No acute intracrani al hemorrhage, acute infarction or abnormal extra axial fluid collection. There is mild scattered whi te matter hypoattenuation consistent with chronic small vessel ischemic disease. Ventricles are norm al and symmetric. No mass/mass effect. The orbits, paranasal sinuses and mastoid air cells are normal . IMPRESSION: 1. No fracture or acute intracranial process. 2. Mild scattered white matter hypoattenuation consistent with chronic small vessel ischemic disease. Reviewed, dictated and finalized at location A. IMPRESSION: 1. No fracture or acute intracranial process. 2. Mild scattered white matter hypoattenuation consistent with chronic small ve ssel ischemic disease.
--- OUTSIDE RECORDS SUMMARY | 2025-04-23 09:49 | XMS_ITS | Clinical Summary ---
Author Organization [facility] Address [address], [address] [address] Phone Care Team Providers Care Lathe Operator Name Role Phone Jose Alfredo Rudolph MD Primary Care Provider EdguySylvain goetz DO Unavailable Medications polyethylene glycol (MIRALAX) Powder [...] 01/11/2006 Influenza Immunization (#1) 2024 SARS-COV-2 Immunization (1 - 2023- season) 2024 Colonoscopy 03/30/2028 03/30/2018 Colorectal Cancer Screening 03/30/2028 Respiratory Syncytial Virus (RSV) Immunization (Adult) (1 - 1-dose 75+ series) 01/11/2031 Hepatitis B Immunization Aged Out No longer eligible based on patient's age to complete this topic Meningococcal Immunization (ACWY) Aged Out No longer eligible based on patient's age to complete this topic Rotavirus Immunization Aged Out No lo nger eligible based on patient's age to complete this topic Procedures Procedure Name Priority Date/Time Associated Diagnosis Comments HM COLONOSCOPY Routine 03/30/2018 from Last 3 Months or Most Recently Relevant to Health Maintenance Results * COLONOSCOPY (03/30/2018) Sylvain Mac DO PROCEDURE/MINOR SURGICAL ORDERA BLES Final Result from Last 3 Months or Most Recently Relevant to Health Maintenance Care Teams Lathe Operator Relationship Specialty Start Date End Date Jose Alfredo Rudolph MD [address] [place] [address] PCP - General Family Medicine 12/31/17 Sylvain Mac DO [address] [place] [address] Gastroenterology 03/31/18
--- OUTSIDE RECORDS SUMMARY | 2025-04-23 09:49 | XMS_ITS | Encounter Summary ---
Author Organization 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 [place] [address] documented as of this encounter Procedures Procedure [...] on filedocumented in this encounter Care Teams Bpm Architect Relationship Specialty Start Date End Date Jose Alfredo Rudolph MD [address] [facility] [address] [place] [address] PCP - General FAMILY PRACTICE 06/13/16 Kimmy Posadas MD [address] [place] [address] [place] Commercial Floor Covering Installer CARDIOVASCULAR DISEASE 03/13/16 documented as of this encounter
--- OUTSIDE RECORDS SUMMARY | 2025-04-23 09:49 | XMS_ITS | Encounter Summary ---
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 [facility] [address] [place] [address] documented as of this encounter Procedures Procedure [...] Final * TSH (OUTSIDE LAB) (07/03/2024) Pathologist [facility] TSH 1.49 07/03/2024 Default History Genericprovider LAB-OUTSIDE/ABST RACTED Edited Result - Final * CBC (OUTSIDE LAB) (07/03/2024) Pathologist [facility] WBC 4.3 HGB 13.2 HCT 39.9 PLT 204 07/03/2024 Default History Genericprovider LAB-OUTSIDE/ABST RACTED Edited Result - Final * LIPID PANEL (12/06/2023) [facility] CHOLESTEROL 179 HDL 75 TRIGLYCERIDES 49 NON HDL CHOLESTEROL 104 LDL (CALCULATED) 90 12/06/2023 Result [facility] History Genericprovider LABORATORY Final Result * (ABNORMAL) COMPREHENSIVE METABOLIC PANEL (06/09/2023) Pathologist [facility] SODIUM S/P/B 141 GLUCOSE 87 mg/dL AST 21 BUN 18 CREATININE S/P/B 1.10(A) 0.5 - 1.0 CALCIUM S/P/B 10.1 POTASSIUM S/P/B 3.6 CHLORIDE S/P/B 102 ALT 12 GFR ESTIMATE 55 Narrative Resulting Agency Comment Default History Genericprovider LABORATORY Final Result * LIPID PANEL (06/09/2023) Pathologist [facility] CHOLESTEROL 214 TRIGLYCERIDES 64 HDL 92 LDL (CALCULATED) 107 NON HDL CHOLESTEROL 122 Narrative Resulting Agency Comment Default History Genericprovider LABORATORY Final Result * CBC, MANUAL DIFF (06/09/2023) Pathologist [facility] WBC 3.7 HGB 13.6 HCT 40.3 PLT 212 Narrative Resulting Agency Comment Default History Genericprovider LABORATORY Final Result * LIPID PANEL (02/07/2022) CHOLESTEROL 178 HDL 70 TRIGLYCERIDES 54 NON HDL CHOLESTEROL 108 LDL (CALCULATED) 94 02/07/2022 us Doc [facility] Abstract LABORATORY Final Result documented in this encounter Visit Diagnoses Not on filedocumented in this encounter Care Teams Air Quality Instrument Specialist Relationship Specialty Start Date End Date Jose Alfredo Rudolph MD [address] [place] [address] PCP - General FAMILY PRACTICE 06/13/16 Kimmy Posadas MD Three [facility]. [facility] [address] [place] [address] Ector Improvement Nurse CARDIOVASCULAR DISEASE 03/13/16 documented as of this encounter
--- OUTSIDE RECORDS SUMMARY | 2025-04-23 09:49 | XMS_ITS | Clinical Summary ---
Author Organization [facility] Address [facility] [place] [address] Care Team Providers Care Sales Specialist Name Role Phone Kimmy Posadas MD Unavailable [phone] Jose Alfredo Rudolph MD Primary Care Provider [phone] Allergies No known active allergies Medications aspirin [...] mouth 2 (two) times daily. 07/03/2023 Active amoxicillin (AMOXIL) 500 MG capsule Take 4 capsules (2,000 mg total) by mouth once. 06/03/2024 Active dilTIAZem CD (CARDIZEM CD) 120 MG 24 hr capsule TAKE 1 CAPSULE DAILY 90 capsule 03/22/2025 Active Active Problems Problem Noted Date Diagnosed Date Chest pain with high risk of acute coronary synd bhargavi 12/26/2021 JOSE R on CPAP 11/06/2020 Snoring 07/07/2020 JAIN (dyspnea on exertion) 07/07/2020 BMI 34.0-34.9,adult 07/07/2020 Environmental and seasonal allergies 07/07/2020 Renal insufficiency 08/20/2018 Chronic fatigue 06/26/2016 Excessive daytime sleepiness 06/26/2016 Precordial pain Pure hypercholesterolemia Essential hypertension Coronary artery disease invo lving [place] coronary artery of [place] heart without angina pectoris Resolved Problems Problem Noted Date Diagnosed Date Resolved Date Pre-operative clearance 08/20/201806/13 Encounters Date Type Department Care Team Description 04/13/2025 4:00 PM CDT Office Visit [address] [address] Kimmy Posadas MD Coronary Artery Disease; Lipids (6 mo follow up) 04/13/2025 Travel from Last 3 Months Immunizations Immunization Administration Dates Next Due Influenza (Generic) 07/13/2014 Influenza Adult (Generic) 11/30/2017 Pneumococcal (Pneumovax 23) 11/30/2017 Family History Medical History Relation Comments Diabetes Father Heart Disease Father Hyperlipidemia Father Stroke Father massive mi Maternal Uncle Hypertension Mother AL Mother cause of dyslipidemia Mother Heart Disease [...] Sign Reading Time Taken Comments Blood Pressure 110/62 04/13/2025 4:43 PM CDT Pulse 77 04/13/2025 4:13 PM CDT Temperature 36.7 C (98 F) 06/18/2024 12:54 PM CDT Respiratory Rate 18 06/18/2024 4:38 PM CDT Oxygen Saturation 98% 04/13/2025 4:13 PM CDT Inhaled Oxygen Concentration - - Weight 86.2 kg (190 lb) 04/13/2025 4:13 PM CDT Height 165.1 cm (5' 5) 04/13/2025 4:13 PM CDT Body Mass Index 31.62 04/13/2025 4:13 PM CDT Plan of Treatment Upcoming Encounters Date Type Department Care Team (Late st Contact Info) Description 03/20/2026 4:00 PM CDT Office Visit [facility] THREE [facility], [facility] [address] [place], [place] [id number] Kimmy Posadas MD Three [facility]. [facility] [address] [place], [place] [id number] Health Maintenance Due Date Last Done Comments ASCVD Statin 1955 Colorectal Cancer Screening Colonoscopy (10 Years) 1955 Hepatitis C 01/11/1974 DTaP, Tdap and Td Vaccines (1 - Tdap) 01/11/1975 Zoster Vaccines (1 of 2) 01/11/2006 RSV Immunization or 60+ Years (1 - Risk 60-74 years 1-dose series) 2016 Pneumococcal Vaccine: 50+ Years (2 of 2 - PCV) 11/30/2018 11/30/2017 COVID-19 Vaccine (1 - 2023- season) 2024 Mammogram Screening 09/06/2026 09/06/2024, 05/06/2023, 05/04/2022, Additional history exists Dexa Scan (General) Completed 09/06/2024, 09/06/2024, 05/01/2021, Additional history exists Meningococcal B Vaccine Aged Out No l onger eligible based on patient's age to complete this topic Meningococcal Vaccine Aged Out No joanne lety eligible based on patient's age to complete this topic RSV Immunizations Under 20 Months Aged Out No longer eligible based on patient's age to complete this topic Insurance [facility] MEDICARE PART A Advance Directives * Full Code (Latest Code Status on File) Date Activated Date Inactivated Comments 12/26/2021 3:21 PM 12/27/2021 5:43 PM Care Teams Sales Specialist Relationship Specialty Start Date End Date Jose Alfredo Rudolph MD [address] [place] [address] PCP - General FAMILY PRACTICE 06/13/16 Kimmy Posadas MD [facility]. [facility] [address] [place] [address] [place]vane Lead Data Architect CARDIOVASCULAR DISEASE 03/13/16
--- OUTSIDE RECORDS SUMMARY | 2025-04-23 09:49 | XMS_ITS | Encounter Summary ---
Author Organization [facility] Address [address] [place] [address] Care Team Providers Care Dental Instructor Name Role Phone Kimmy Posadas MD Unavailable [phone] Jose Alfredo Rudolph MD Primary Care Provider [phone] Encounter Details Date Type Department Care Team (Late st Contact Info) Description 04/18/2020 [facility] at [address] [address] Shaheed Gonzalez MA Social History Tobacco Use [...] CDT Office Visit [facility] THREE [facility] [address] [place] [address] Kimmy Posadas MD [address] [place] [address] [place] [address] documented as of this encounter Procedures Procedure [...] on filedocumented in this encounter Care Teams Dental Instructor Relationship Specialty Start Date End Date Jose Alfredo Rudolph MD [address] [place] [address] PCP - General FAMILY PRACTICE 06/13/16 Kimmy Posadas MD [facility] [address] [place] [address] [place] Tube Winder Hand CARDIOVASCULAR DISEASE 03/13/16 documented as of this encounter
--- OUTSIDE RECORDS SUMMARY | 2025-04-23 09:49 | XMS_ITS | Encounter Summary ---
Author Organization [facility] Facility Care Team Providers Care Grad Intern Name Role Phone Jose Alfredo Rudolph MD Primary Care Provider Unknown, Notinfile Primary Care Provider Unavail able Jose Alfredo Rudolph MD Primary Care Provider Jose Alfredo Rudolph MD Unavailable [phone] Jose Alfredo Rudolph MD Primary Care Provider Cristine Thurston MD Unavailable [phone] Encounter Details Date Type Department Care Team (Latest Contact Info) Description 09/07/2018 Orders Only [facility] CLINCON[facility] ProviderDwight MD [address] [place] [address] Social History Tobacco Use Types Packs/Day Years Used Date Smoking Tobacco: Never Assessed Comments Unknown Sex and Gender Information Value Date Recorded Sex Assigned at Not on file Legal Sex Female 11:47 PM OPTICAL INSTRUMENT ASSEMBLER Gender Identity Not on file Sexual Orientation Not on file documented as of this encounter Plan of Treatment Not on file documented as of this encounter Procedures Procedure Name Priority Date/Time Associated Diagnosis Comments PROCEDURE - RESULT 09/07/2018 12 :00 AM OPTICAL INSTRUMENT ASSEMBLER documented in this encounter Results * PROCEDURE - RESULT (09/07/2018 12:00 AM OPTICAL INSTRUMENT ASSEMBLER) Narrative 09/07/2018 12:00 AM OPTICAL INSTRUMENT ASSEMBLER Ordered by an unspecified provider. Historical Provider Final Res ult documented in this encounter Visit Diagnoses Not on filedocumented in this encounter Care Teams Grad Intern Relationship Specialty Start Date End Date Jose Alfredo Rudolph MD [address] [place] [address] PCP - General 11/27/18 12/31/18 Unknown, Notinfile PCP - General 01/01/19 01/10/19 Jose Alfredo Rudolph MD [address] [place] [address] PCP - General Family Medicine 01/11/19 01/11/19 Jose Alfredo Rudolph MD [address] [place] [address] PCP - General Family Medicine 01/12/19 Jose Alfredo Rudolph MD [address] [place] [address] 01/01/19 Cristine Thurston MD [address] [place] [address] Referring Physician Obstetrics and Gynecology 05/04/22 documented as of this encounter
--- OUTSIDE RECORDS SUMMARY | 2025-04-23 09:49 | XMS_ITS | Clinical Summary ---
Author Organization [facility] Address [facility] [place] [address] Care Team Providers Care Digital Sales Executive Name Role Phone Jose Alfredo Rudolph MD Unavailable [phone] Jose Alfredo Rudolph MD Primary Care Provider Cristine Thurston MD Unavailable [phone] Allergies No known active allergies Medications aspirin [...] 150 mg tablet 150 mg daily Active [id number] (MEGARED OMEGA-3 KRILL OIL) [id number] mg capsule 500 mg Active polyethylene glycol [...] Site/Laterality Comments CHOLECYSTECTOMY Cholecystectomy - (Added by TW Conv) JOINT REPLACEMENT KNEE SURGERY TOTAL KNEE ARTHROPLASTY 09/09/2018 Right MANIPULATION KNEE JOINT 11/04/2017 Right HYSTERECTOMY 03/13/1991 Hysterectomy - (Added by TW Conv) PARTIAL Medical History Medical History Date [...] Frequency of Binge Drinking Not on file 0411/2018 Comments No Sex and Gender Information Value Date Recorded Sex Assigned at Not on file Legal Sex Female 11:47 PM CABLE BRAIDER Gender Identity Not on file Sexual Orientation [...] Comments Blood Pressure 108/66 11/04/2018 8:45 AM CABLE BRAIDER Pulse 65 11/04/2018 8:45 AM CABLE BRAIDER Temperature 36.4 C (97.5 F) 11/04/2018 8:45 AM CABLE BRAIDER Respiratory Rate - - Oxygen Saturation 93% 11/04/2018 8:45 AM CABLE BRAIDER Inhaled Oxygen Concentration - - Weight 88.5 kg (195 lb) 02/14/2020 3:15 PM CDT Height 165.1 cm (5' 5) 02/14/2020 3:15 PM CDT Body Mass Index [...] 11/30/2017 Well Visit 65+ 01/11/2021 Influenza Vaccine (Season Ended) 2025 09/11/2018, 11/30/2017, 08/03/2014, Additional history exists Breast Cancer Screening-Mammogram 09/06/2025 09/06/2024, 05/06/2023, 05/04/2022, Additional history exists Osteoporosis Screening-Bone Density Scan 09/06/2026 09/06/2024, 05/01/2021, 04/12/2019, Additional history exists Procedures Procedure Name Priority Date/Time Associated Diagnosis Comments SCREENING MAMMOGRAM BILATERAL W ISAIAS Schedule Routine, Read Routine (OP Routine) 09/06/2024 12:30 PM CABLE BRAIDER Screening mammogram, encounter for DEXA AXIAL SKELETON BONE DENSITY 1 OR MORE SITES Schedule Routine, Read Routine (OP Routine) 09/06/2024 12:30 PM CABLE BRAIDER Asymptomatic menopausal state Encounter for screening for osteoporosis from Last 3 Months or Most Recently Relevant to Health Maintenance Results * Screening Mammogram Bilateral W Isaias (09/06/2024 12:30 PM CABLE BRAIDER) Anatomical Region Laterality Modality Breast Bilateral Mammography Impressions 09/06/2024 1:12 PM CABLE BRAIDER BI-RADS ATLAS category (overall): 1 - Negative There is no mammographic evidence of malignancy. A 1 year screening mammogram is recommended. The patient has been or will be contacted. We recommend annual screening mammography for women at average risk of breast cancer beginning at age 40, based on guidelines of the [employer] (ACR Practice Parameter for the Performance of Screening and Diagnostic Mammography) and [employer]. For women with and elevated risk of breast cancer, please refer to the ACR Practice Parameter for specific screening recommendations. The patient will be entered into a reminder system with a target due date of 1 year for her next screening exam. Narrative 09/06/2024 1:12 PM CABLE BRAIDER Screening Mammogram Bilateral W Isaias: 09/06/24 The [...] 1 or 2 Site (09/06/2024 12:30 PM CABLE BRAIDER) Anatomical Region Laterality Modality Body N/A Mammography 09/06/2024 1:30 PM CABLE BRAIDER Narrative 09/06/2024 1:31 PM CABLE BRAIDER EXAM DESCRIPTION: DEXA AXIAL SKELETON BONE DENSITY 1 OR MORE SITES REASON FOR STUDY: 69 y/o year old F with given history of: Post menopausal status. Patient has taken/is taking vitamin-D and calcium Neuroscience Specialist/Model: Incentive Targeting A (S/N [id number]) CLINICAL INFORMATION: Current height: 64.5 inches Maximum [...] Luisa Mccabe M.D. TW: TW Report ID: [id number] Reading Location: [id number] Procedure Note Ana Luisa Mccabe MD - 09/06/2024 EXAM DESCRIPTION: DEXA AXIAL SKELETON BONE DENSITY 1 OR MORE SITES REASON FOR STUDY: 69 y/o year old F with given history of: Post menopausal status. Patient has taken/is taking vitamin-D and calcium Neuroscience Specialist/Model: Incentive Targeting A (S/N [id number]) CLINICAL INFORMATION: Current height: 64.5 inches Maximum [...] Luisa Mccabe M.D. TW: TW Report ID: [id number] Reading Location: [place] [address] Jarret Diego MD IMG DXA PROCEDURES Final Re sult from Last 3 Months or Most Recently Relevant to Health Maintenance Insurance [facility] [facility] PPO [facility] Care Teams Digital Sales Executive Relationship Specialty Start Date End Date Jose Alfredo Rudolph MD [address] [facility] [address] [place] [address] PCP - General Family Medicine 01/12/19 Jose Alfredo Rudolph MD [address] [facility] [address] [place] [address] 01/01/19 Cristine Thurston MD [address] [facility] [address] [place] [address] Referring Physician Obstetrics and Gynecology 05/04/22
--- OUTSIDE RECORDS SUMMARY | 2025-04-23 09:49 | XMS_ITS | Encounter Summary ---
Author Organization [facility] Facility Care Team Providers Care Cat Skinner Name Role Phone Jose Alfredo Rudolph MD Primary Care Provider Unknown, Notinfile Primary Care Provider Unavail able Jose Alfredo Rudolph MD Primary Care Provider Jose Alfredo Rudolph MD Unavailable [phone] Jose Alfredo Rudolph MD Primary Care Provider Cristine Thurston MD Unavailable [phone] Encounter Details Date Type Department Care Team (Latest Contact Info) Description 09/09/2018 Orders Only [facility] CLINCONV ProviderDwight MD [address] [place] [address] Social History Tobacco Use Types Packs/Day Years Used Date Smoking Tobacco: Never Assessed Comments Unknown Sex and Gender Information Value Date Recorded Sex Assigned at Not on file Legal Sex Female 11:47 PM TAIL WORKER Gender Identity Not on file Sexual Orientation Not on file documented as of this encounter Plan of Treatment Not on file documented as of this encounter Procedures Procedure Name Priority Date/Time Associated Diagnosis Comments PROCEDURE - RESULT 09/10/2018 12 :00 AM TAIL WORKER documented in this encounter Results * PROCEDURE - RESULT (09/10/2018 12:00 AM TAIL WORKER) Narrative 09/10/2018 12:00 AM TAIL WORKER Ordered by an unspecified provider. Historical Provider Final Res ult documented in this encounter Visit Diagnoses Not on filedocumented in this encounter Care Teams Cat Skinner Relationship Specialty Start Date End Date Jose Alfredo Rudolph MD [address] [place] [address] PCP - General 11/27/18 12/31/18 Unknown, Notinfile PCP - General 01/01/19 01/10/19 Jose Alfredo Rudolph MD [address] [place] [address] PCP - General Family Medicine 01/11/19 01/11/19 Jose Alfredo Rudolph MD [address] [place] [address] PCP - General Family Medicine 01/12/19 Jose Alfredo Rudolph MD [address] [place] [address] 01/01/19 Cristine Thurston MD [address] [place] [address] Referring Physician Obstetrics and Gynecology 05/04/22 documented as of this encounter
--- OUTSIDE RECORDS SUMMARY | 2025-04-23 09:49 | XMS_ITS | Encounter Summary ---
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 [facility] [address] [place], [place] [id number] documented as of this encounter Procedures Procedure [...] on filedocumented in this encounter Care Teams Auto Haulaway Driver Relationship Specialty Start Date End Date Jose Alfredo Rudolph MD [address] [place] [address] PCP - General FAMILY PRACTICE 06/13/16 Kimmy Posadas MD Three [facility]. [facility] [address] [place] [address] [place] Rod Assembler CARDIOVASCULAR DISEASE 03/13/16 documented as of this encounter
--- OUTSIDE RECORDS SUMMARY | 2025-04-23 09:49 | XMS_ITS | Encounter Summary ---
Author Organization [facility] Facility Care Team Providers Care Station Installer And Repairer Name Role Phone Jose Alfredo Rudolph MD Primary Care Provider Unknown, Notinfile Primary Care Provider Unavail able Jose Alfredo Rudolph MD Primary Care Provider Jose Alfredo Rduolph MD Unavailable [phone] Jose Alfredo Rudolph MD Primary Care Provider Cristine Thurston MD Unavailable [phone] Encounter Details Date Type Department Care Team (Latest Contact Info) Description 08/21/2018 Orders Only [facility] CLINCONV ProviderDwight MD [address] [place] [address] Social History Tobacco Use Types Packs/Day Years Used Date Smoking Tobacco: Never Assessed Comments Unknown Sex and Gender Information Value Date Recorded Sex Assigned at Not on file Legal Sex Female 11:47 PM DOCK LOADER Gender Identity Not on file Sexual Orientation Not on file documented as of this encounter Plan of Treatment Not on file documented as of this encounter Procedures Procedure Name Priority Date/Time Associated Diagnosis Comments PROCEDURE - RESULT 08/21/2018 12 :00 AM DOCK LOADER documented in this encounter Results * PROCEDURE - RESULT (08/21/2018 12:00 AM DOCK LOADER) Narrative 08/21/2018 12:00 AM DOCK LOADER Ordered by an unspecified provider. Historical Provider Final Res ult documented in this encounter Visit Diagnoses Not on filedocumented in this encounter Care Teams Station Installer And Repairer Relationship Specialty Start Date End Date Jose Alfredo Rudolph MD [address] [place] [address] PCP - General 11/27/18 12/31/18 Unknown, Notinfile PCP - General 01/01/19 01/10/19 Jose Alfredo Rudolph MD [address] [place] [address] PCP - General Family Medicine 01/11/19 01/11/19 Jose Alfredo Rudolph MD [address] [place] [address] PCP - General Family Medicine 01/12/19 Jose Alfredo Rudolph MD [address] [place] [address] 01/01/19 Cristine Thurston MD [address] [place] [address] Referring Physician Obstetrics and Gynecology 05/04/22 documented as of this encounter
--- OUTSIDE RECORDS SUMMARY | 2025-04-23 09:49 | XMS_ITS | Encounter Summary ---
Author Organization [facility] Facility Care Team Providers Care Survey Workers Supervisor Name Role Phone Jose Alfredo Rudolph MD Primary Care Provider Unknown, Notinfile Primary Care Provider Unavail able Jose Alfredo Rudolph MD Primary Care Provider Jose Alfredo Rudolph MD Unavailable [phone] Jose Alfredo Rudolph MD Primary Care Provider Cristine Thurston MD Unavailable [phone] Encounter Details Date Type Department Care Team (Latest Contact Info) Description 11/04/2018 Orders Only [facility] CLINCONV ProviderDwight MD [address] [place] [address] Social History Tobacco Use Types Packs/Day Years Used Date Smoking Tobacco: Never Assessed Comments Unknown Sex and Gender Information Value Date Recorded Sex Assigned at Not on file Legal Sex Female 11:47 PM [employer]IEF [employer] Gender Identity Not on file Sexual Orientation Not on file documented as of this encounter Plan of Treatment Not on file documented as of this encounter Procedures Procedure Name Priority Date/Time Associated Diagnosis Comments PROCEDURE - RESULT 11/06/2018 12 :00 AM [employer] documented in this encounter Results * PROCEDURE - RESULT (11/06/2018 12:00 AM [employer]) Narrative 11/06/2018 12:00 AM [employer] Ordered by an unspecified provider. Historical Provider Final Res ult documented in this encounter Visit Diagnoses Not on filedocumented in this encounter Care Teams Survey Workers Supervisor Relationship Specialty Start Date End Date Jose Alfredo Rudolph MD [address] [place] [address] PCP - General 11/27/18 12/31/18 Unknown, Notinfile PCP - General 01/01/19 01/10/19 Jose Alfredo Rudolph MD [address] [place] [address] PCP - General Family Medicine 01/11/19 01/11/19 Jose Alfredo Rudolph MD [address] [place] [address] PCP - General Family Medicine 01/12/19 Jose Alfredo Rudolph MD [address] [place] [address] 01/01/19 Cristine Thurston MD [address] [place] [address] Referring Physician Obstetrics and Gynecology 05/04/22 documented as of this encounter
--- OUTSIDE RECORDS SUMMARY | 2025-04-23 09:49 | XMS_ITS | Referral Summary ---
Author Organization [facility] [place] Address [facility] [place] [address] Care Team Providers Care Fusing Line Inspector Name Role Phone Jose Alfredo Rudolph MD Unavailable [phone] Jose Alrfedo Rudolph MD Primary Care Provider Cristine Thurston MD Unavailable [phone] Allergies No known active allergies Medications aspirin [...] 150 mg tablet 150 mg daily Active [id number] (MEGARED OMEGA-3 KRILL OIL) [id number] mg capsule 500 mg Active polyethylene glycol [...] on file Legal Sex Female 11:47 PM FRONT MAN Gender Identity Not on file Sexual Orientation Not on file 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 file Not on file Last Filed Vital Signs Vital Sign Reading Time Taken Comments Blood Pressure 108/66 11/04/2018 8:45 AM FRONT MAN Pulse 65 11/04/2018 8:45 AM FRONT MAN Temperature 36.4 C (97.5 F) 11/04/2018 8:45 AM FRONT MAN Respiratory Rate - - Oxygen Saturation 93% 11/04/2018 8:45 AM FRONT MAN Inhaled Oxygen Concentration - - Weight 88.5 kg (195 lb) 02/14/2020 3:15 PM CDT Height 165.1 cm (5' 5) 02/14/2020 3:15 PM CDT Body Mass Index 32.45 02/14/2020 3:15 PM CDT Plan of Treatment Not on file Procedures Procedure Name Priority Date/Time Associated Diagnosis Comments SCREENING MAMMOGRAM BILATERAL W ISAIAS Schedule Routine, Read Routine (OP Routine) 09/06/2024 12:30 PM FRONT MAN Screening mammogram, encounter for DEXA AXIAL SKELETON BONE DENSITY 1 OR MORE SITES Schedule Routine, Read Routine (OP Routine) 09/06/2024 12:30 PM FRONT MAN Asymptomatic menopausal state Encounter for screening for osteoporosis from Last 3 Months or Most Recently Relevant to Health Maintenance Results * Screening Mammogram Bilateral W Isaias (09/06/2024 12:30 PM FRONT MAN) Anatomical Region Laterality Modality Breast Bilateral Mammography Impressions 09/06/2024 1:12 PM FRONT MAN BI-RADS ATLAS category (overall): 1 - Negative There is no mammographic evidence of malignancy. A 1 year screening mammogram is recommended. The patient has been or will be contacted. We recommend annual screening mammography for women at average risk of breast cancer beginning at age 40, based on guidelines of the [employer] (ACR Practice Parameter for the Performance of Screening and Diagnostic Mammography) and [employer]. For women with and elevated risk of breast cancer, please refer to the ACR Practice Parameter for specific screening recommendations. The patient will be entered into a reminder system with a target due date of 1 year for her next screening exam. Narrative 09/06/2024 1:12 PM FRONT MAN Screening Mammogram Bilateral W Isaias: 09/06/24 The [...] 1 or 2 Site (09/06/2024 12:30 PM FRONT MAN) Anatomical Region Laterality Modality Body N/A Mammography 09/06/2024 1:30 PM FRONT MAN Narrative 09/06/2024 1:31 PM FRONT MAN EXAM DESCRIPTION: DEXA AXIAL SKELETON BONE DENSITY 1 OR MORE SITES REASON FOR STUDY: 69 y/o year old F with given history of: Post menopausal status. Patient has taken/is taking vitamin-D and calcium Professor Of Theatre/Model: HERMEL DELOR A (S/N [id number]) CLINICAL INFORMATION: Current height: 64.5 inches Maximum [...] Luisa Mccabe M.D. TW: TW Report ID: [id number] Reading Location: [id number] Procedure Note Ana Luisa Mccabe MD - 09/06/2024 EXAM DESCRIPTION: DEXA AXIAL SKELETON BONE DENSITY 1 OR MORE SITES REASON FOR STUDY: 69 y/o year old F with given history of: Post menopausal status. Patient has taken/is taking vitamin-D and calcium Professor Of Theatre/Model: Hologic Horizon A ([id number]/N [id number]) CLINICAL INFORMATION: Current height: 64.5 inches Maximum [...] Luisa Mccabe M.D. TW: TW Report ID: [id number] Reading Location: [id number] Jarret Diego MD IMG DXA PROCEDURES Final Re sult from Last 3 Months or Most Recently Relevant to Health Maintenance Insurance [employer] [facility] [place] [address] [facility] Care Teams Fusing Line Inspector Relationship Specialty Start Date End Date Jose Alfredo Rudolph MD [address] [address] PCP - General Family Medicine 01/12/19 Jose Alfredo Rudolph MD [address] [facility] [address] [place] [address] 01/01/19 Cristine Thurston MD [address] [facility] [address] [place] [address] Referring Physician Obstetrics and Gynecology 05/04/22
[2025-04-23 09:54] VITALS: BP 131/79; PULSE 99; RESP 15; TEMP 36.5; O2SAT 100
--- NOTE | 2025-04-23 10:06 | ED.GENADULT ---
HPI - General Adult General Chief complaint: Fall Stated complaint: mechanical fall with injuries Time Seen by Provider: 04/23/25 09:56 History of Present Illness HPI narrative: This is a 70-year-old female presenting after mechanical fall. She was walking through her laundry room when she tripped. She fell forward striking her head on the cabinet. She has a large forehead hematoma. She did not lose consciousness. She does not use blood thinners. Not had any persistent vomiting or neurologic defects. No other injuries to any part of her body. 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 HLD (hyperlipidemia) IFG (impaired fasting glucose) Surgical History Surgical History History of hysterectomy History of cholecystectomy History of fusion of cervical spine History of delivery History of knee replacement H/O arthroscopic knee surgery Right Family History Family History Father Patient's father is in good health Family history of type 2 diabetes mellitus Family history of heart disease in male family member before age 55 Diabetes mellitus Family history of hypercholesterolemia Hypertension Cerebrovascular accident Mother Patient's mother is Family history of heart disease in male family member before age 55 Family history of hypercholesterolemia Hypertension Heart disease Other Family history of malignant neoplasm of breast Social History Social History Smoking status: Never smoker Second hand tobacco smoke exposure: No Alcohol intake: current Alcohol use details: social drinker Substance use: never Substance use type: does not use Do You Feel Safe in your Home?: Yes Lack of Transportation: No Lack of Food: Never True Current Housing: I Have Housing Concerned About Future Housing: No Difficulty Paying Gas/Electric Bills: No Difficulty Paying for Meds: No Currently Unemployed: No Education: High School Diploma/GED Difficulty w/ Childcare or Family Care: No Living arrangements: with family Occupation/Education: occupation Gender identity (if verbalized by the patient): Female Exam Narrative: APPEARANCE: No apparent distress. Head: Forehead hematoma without laceration EYES: EOMI, NOSE: Atraumatic NECK: Trachea midline, no midline tenderness, cervical spine RESPIRATORY: No increased rate of breathing is fused she is in C-collar so mobility is limited CARDIOVASCULAR: RRR, no peripheral edema ABDOMINAL: Non-distended soft nontender MUSCULOSKELETAl: Head to toe trauma exam performed with no injuries outside of the forehead hematoma NEURO: Alert. Moving 4/4 extremities SKIN:: Warm, dry. Normal color PSYCHIATRIC: Normal affect Course Vital Signs Vital signs: Vital Signs Temperature 97.7 F 04/23/25 09:54 Pulse Rate 99 04/23/25 09:54 Respiratory Rate 15 04/23/25 09:54 Blood Pressure 131/79 04/23/25 09:54 Pulse Oximetry 100 04/23/25 09:54 Oxygen Delivery Room Air 04/23/25 09:54 Temperature 97.7 F 04/23/25 09:54 Pulse Rate 99 04/23/25 09:54 Respiratory Rate 15 04/23/25 09:54 Blood Pressure 131/79 04/23/25 09:54 Pulse Oximetry 100 04/23/25 09:54 Oxygen Delivery Room Air 04/23/25 09:54 Medical Decision Making MDM Narrative Medical decision making narrative: -Course: 70-year-old female presenting after a mechanical fall. CT of the brain and C-spine negative for traumatic injury. No other concerning findings on history or physical. Patient be discharged pain medication. Given return precautions. -DDX includes but is not limited to: ICH, concussion, hematoma -Co-morbidities complicating care: Cervical fusion Vital Signs Vital Signs: Vital Signs Temperature 97.7 F 04/23/25 09:54 Pulse Rate 99 04/23/25 09:54 Respiratory Rate 15 04/23/25 09:54 Blood Pressure 131/79 04/23/25 09:54 Pulse Oximetry 100 04/23/25 09:54 Oxygen Delivery Room Air 04/23/25 09:54 Temperature 97.7 F 04/23/25 09:54 Pulse Rate 99 04/23/25 09:54 Respiratory Rate 15 04/23/25 09:54 Blood Pressure 131/79 04/23/25 09:54 Pulse Oximetry 100 04/23/25 09:54 Oxygen Delivery Room Air 04/23/25 09:54 Discharge Plan Discharge Clinical Impression: Hematoma, Fall Patient Disposition: Home Condition: Stable Instructions: Antibiotic Form, Hematoma (ED) Additional Instructions: You were seen emergency department after a fall. CT of her head and brain were negative for acute injuries. Please use Tylenol and Robaxin as needed for pain. Return to the ED if you develop any new or worsening symptoms. Patient Language: Ukrainian Prescriptions: New acetaminophen 500 mg capsule 1,000 mg PO Q6H PRN (Reason: pain) Qty: 90 0RF methocarbamol 750 mg tablet 1,500 mg PO TID Qty: 60 0RF No Action nitroglycerin 0.4 mg tablet, sublingual 0.4 mg sublingual Q5M PRN (Reason: chest pain) Qty: 30 1RF Rx Instructions: do not exceed 3 doses per episode cholestyramine-aspartame [Cholestyramine Light] 4 gram powder in packet 4 g PO DAILY Qty: 60 2RF albuterol sulfate 90 mcg/actuation HFA aerosol inhaler 1 puff inhalation QID Qty: 6.7 0RF diltiazem HCl 120 mg capsule,ext.rel 24h degradable 120 mg PO DAILY Qty: 90 0RF irbesartan 150 mg tablet See Rx Instructions .ROUTE .COMPLEX Qty: 90 2RF Dose Instruction: TAKE 1 TABLET DAILY Rx Instructions: TAKE 1 TABLET DAILY fluconazole 150 mg tablet 150 mg PO ONCE Qty: 2 0RF Rx Instructions: Take 1 tablet. If symptoms persist, may repeat dose after 72 hours. atorvastatin 20 mg tablet 20 mg PO BID Qty: 180 2RF triamterene-hydrochlorothiazid 37.5-25 mg tablet See Rx Instructions .ROUTE .COMPLEX Qty: 180 2RF Dose Instruction: TAKE 1 TABLET TWICE A DAY Rx Instructions: TAKE 1 TABLET TWICE A DAY Follow-up/Referrals: Jose Alfredo Rudolph MD [Primary Care Provider] -
--- OUTSIDE RECORDS SUMMARY | 2025-04-23 10:10 | XMS_ITS | Encounter Summary ---
Author Organization 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 [facility] [address] [place], [place] [id number] documented as of this encounter Procedures Procedure [...] on filedocumented in this encounter Care Teams Director Stage Relationship Specialty Start Date End Date Jose Alfredo Rudolph MD [address] [place] [address] PCP - General FAMILY PRACTICE 06/13/16 Kimmy Posadas MD Three [facility]. [facility] [address] [place] [address] [facility] Curator CARDIOVASCULAR DISEASE 03/13/16 documented as of this encounter
--- OUTSIDE RECORDS SUMMARY | 2025-04-23 10:10 | XMS_ITS | Encounter Summary ---
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 [place] [address] documented as of this encounter Procedures Procedure [...] on filedocumented in this encounter Care Teams Jd Edwards Developer Relationship Specialty Start Date End Date Jose Alfredo Rudolph MD [address] [facility] [address] [place] [address] PCP - General FAMILY PRACTICE 06/13/16 Kimmy Posadas MD [address] [place] [address] [employer] Technician CARDIOVASCULAR DISEASE 03/13/16 documented as of this encounter
--- OUTSIDE RECORDS SUMMARY | 2025-04-23 10:10 | XMS_ITS | Clinical Summary ---
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 Resolved Problems Problem Noted Date Diagnosed Date Resolved Date Pre-operative clearance 08/20/201806/13 Encounters Date Type Department Care Team Description 04/13/2025 4:00 PM CDT Office Visit [address] [address] Kimmy Posadas MD Coronary Artery Disease; Lipids (6 mo follow up) 04/13/2025 Travel from Last 3 Months Immunizations Immunization Administration Dates Next Due Influenza (Generic) 07/13/2014 Influenza Adult (Generic) 11/30/2017 Pneumococcal (Pneumovax 23) 11/30/2017 Family History Medical History Relation Comments Diabetes Father Heart Disease Father Hyperlipidemia Father Stroke Father massive mi Maternal Uncle Hypertension Mother DC Mother cause of dyslipidemia Mother Heart Disease [...] 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 [facility] [address] [place], [place] [phone] Health Maintenance Due Date Last Done Comments [...] age to complete this topic Insurance [facility] MEDICARE PART A Advance Directives * Full Code (Latest Code Status on File) Date Activated Date Inactivated Comments 12/26/2021 3:21 PM 12/27/2021 5:43 PM Care Teams Medical Physicist Relationship Specialty Start Date End Date Jose Alfredo Rudolph MD [address] [place] [address] PCP - General FAMILY PRACTICE 06/13/16 Kimmy Posadas MD [facility]. [facility] [address] [place] [address] [employer] Laborer CARDIOVASCULAR DISEASE 03/13/16
--- OUTSIDE RECORDS SUMMARY | 2025-04-23 10:10 | XMS_ITS | Encounter Summary ---
Author Organization [facility] Facility Care Team Providers Care Med Asst Name Role Phone Jose Alfredo Rudolph MD Primary Care Provider Unknown, Notinfile Primary Care Provider Unavail able Jose Alfredo Rudolph MD Primary Care Provider Jose Alfredo Rudolph MD Unavailable [phone] Jose Alfredo Rudolph MD Primary Care Provider Cristine Thurston MD Unavailable [phone] Encounter Details Date Type Department Care Team (Latest Contact Info) Description 09/07/2018 Orders Only [facility] CLINCONV ProviderDwight MD [address] [place] [address] Social History Tobacco Use Types Packs/Day Years Used Date Smoking Tobacco: Never Assessed Comments Unknown Sex and Gender Information Value Date Recorded Sex Assigned at Not on file Legal Sex Female 11:47 PM SUPPLY CHAIN PROCUREMENT 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 Historical Provider Final Res ult documented in this encounter Visit Diagnoses Not on filedocumented in this encounter Care Teams Med Asst Relationship Specialty Start Date End Date Jose Alfredo Rudolph MD [address] [place] [address] PCP - General 11/27/18 12/31/18 Unknown, Notinfile PCP - General 01/01/19 01/10/19 Jose Alfredo Rudolph MD [address] [place] [address] PCP - General Family Medicine 01/11/19 01/11/19 Jose Alfredo Rudolph MD [address] [place] [address] PCP - General Family Medicine 01/12/19 Jose Alfredo Rudolph MD [address] [place] [address] 01/01/19 Cristine Thurston MD [address] [place] [address] Referring Physician Obstetrics and Gynecology 05/04/22 documented as of this encounter
--- OUTSIDE RECORDS SUMMARY | 2025-04-23 10:10 | XMS_ITS | Encounter Summary ---
Author Organization [facility] Facility Care Team Providers Care Banking Pin Adjuster Name Role Phone Jose Alfredo Rudolph MD Primary Care Provider Unknown, Notinfile Primary Care Provider Unavail able Jose Alfredo Rudolph MD Primary Care Provider Jose Alfredo Rudolph MD Unavailable [phone] Jose Alfredo Rudolph MD Primary Care Provider Cristine Thurston MD Unavailable [phone] Encounter Details Date Type Department Care Team (Latest Contact Info) Description 08/21/2018 Orders Only [facility] CLINCONV ProviderDwight MD [address] [place] [address] Social History Tobacco Use Types Packs/Day Years Used Date Smoking Tobacco: Never Assessed Comments Unknown Sex and Gender Information Value Date Recorded Sex Assigned at Not on file Legal Sex Female 11:47 PM MICROFILMING DOCUMENT PREPARER Gender Identity Not on file Sexual Orientation Not on file documented as of this encounter Plan of Treatment Not on file documented as of this encounter Procedures Procedure Name Priority Date/Time Associated Diagnosis Comments PROCEDURE - RESULT 08/21/2018 12 :00 AM MICROFILMING DOCUMENT PREPARER documented in this encounter Results * PROCEDURE - RESULT (08/21/2018 12:00 AM MICROFILMING DOCUMENT PREPARER) Narrative 08/21/2018 12:00 AM MICROFILMING DOCUMENT PREPARER Ordered by an unspecified provider. Historical Provider Final Res ult documented in this encounter Visit Diagnoses Not on filedocumented in this encounter Care Teams Banking Pin Adjuster Relationship Specialty Start Date End Date Jose Alfredo Rudolph MD [address] [place] [address] PCP - General 11/27/18 12/31/18 Unknown, Notinfile PCP - General 01/01/19 01/10/19 Jose Alfredo Rudolph MD [address] [place] [address] PCP - General Family Medicine 01/11/19 01/11/19 Jose Alfredo Rudolph MD [address] [place] [address] PCP - General Family Medicine 01/12/19 Jose Alfredo Rudolph MD [address] [place] [address] 01/01/19 Cristine Thurston MD [address] [place] [address] Referring Physician Obstetrics and Gynecology 05/04/22 documented as of this encounter
--- OUTSIDE RECORDS SUMMARY | 2025-04-23 10:10 | XMS_ITS | Encounter Summary ---
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 [place] [address] documented as of this encounter Procedures Procedure [...] on filedocumented in this encounter Care Teams Comfort Advisor Relationship Specialty Start Date End Date Jose Alfredo Rudolph MD [address] [place] [address] PCP - General FAMILY PRACTICE 06/13/16 Kimmy Posadas MD [facility] [address] [place] [address] [employer] Truck Driver CARDIOVASCULAR DISEASE 03/13/16 documented as of this encounter
--- OUTSIDE RECORDS SUMMARY | 2025-04-23 10:10 | XMS_ITS | Encounter Summary ---
Author Organization [facility] Facility Care Team Providers Care Dirt Shoveler Name Role Phone Jose Alfredo Rudolph MD Primary Care Provider Unknown, Notinfile Primary Care Provider Unavail able Jose Alfredo Rudolph MD Primary Care Provider Jose Alfredo Rudolph MD Unavailable [phone] Jose Alfredo Rudolph MD Primary Care Provider Cristine Thurston MD Unavailable [phone] Encounter Details Date Type Department Care Team (Latest Contact Info) Description 11/04/2018 Orders Only [facility] CLINCONV ProviderDwight MD [address] [place] [address] Social History Tobacco Use Types Packs/Day Years Used Date Smoking Tobacco: Never Assessed Comments Unknown Sex and Gender Information Value Date Recorded Sex Assigned at Not on file Legal Sex Female 11:47 PM [employer]ODU[employer] DISTRICT SUPERVISOR Gender Identity Not on file Sexual Orientation Not on file documented as of this encounter Plan of Treatment Not on file documented as of this encounter Procedures Procedure Name Priority Date/Time Associated Diagnosis Comments PROCEDURE - RESULT 11/06/2018 12 :00 AM [employer] DISTRICT SUPERVISOR documented in this encounter Results * PROCEDURE - RESULT (11/06/2018 12:00 AM [employer]RO[employer] DISTRICT SUPERVISOR) Narrative 11/06/2018 12:00 AM [employer] DISTRICT SUPERVISOR Ordered by an unspecified provider. Historical Provider Final Res ult documented in this encounter Visit Diagnoses Not on filedocumented in this encounter Care Teams Dirt Shoveler Relationship Specialty Start Date End Date Jose Alfredo Rudolph MD [address] [place] [address] PCP - General 11/27/18 12/31/18 Unknown, Notinfile PCP - General 01/01/19 01/10/19 Jose Alfredo Rudolph MD [address] [place] [address] PCP - General Family Medicine 01/11/19 01/11/19 Jose Alfredo Rudolph MD [address] [place] [address] PCP - General Family Medicine 01/12/19 Jose Alfredo Rudolph MD [address] [place] [address] 01/01/19 Cristine Thurston MD [address] [place] [address] Referring Physician Obstetrics and Gynecology 05/04/22 documented as of this encounter
--- OUTSIDE RECORDS SUMMARY | 2025-04-23 10:10 | XMS_ITS | Encounter Summary ---
Author Organization [facility] Facility Care Team Providers Care Seed Cone Picker Name Role Phone Jose Alfredo Rudolph MD Primary Care Provider Unknown, Notinfile Primary Care Provider Unavail able Jose Alfredo Rudolph MD Primary Care Provider Jose Alfredo Rudolph MD Unavailable [phone] Jose Alfredo Rudolph MD Primary Care Provider Cristine Thurston MD Unavailable [phone] Encounter Details Date Type Department Care Team (Latest Contact Info) Description 09/09/2018 Orders Only [facility] CLINCONV ProviderDwight MD [address] [place] [address] Social History Tobacco Use Types Packs/Day Years Used Date Smoking Tobacco: Never Assessed Comments Unknown Sex and Gender Information Value Date Recorded Sex Assigned at Not on file Legal Sex Female 11:47 PM 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 Historical Provider Final Res ult documented in this encounter Visit Diagnoses Not on filedocumented in this encounter Care Teams Seed Cone Picker Relationship Specialty Start Date End Date Jose Alfredo Rudolph MD [address] [place] [address] PCP - General 11/27/18 12/31/18 Unknown, Notinfile PCP - General 01/01/19 01/10/19 Jose Alfredo Rudolph MD [address] [place] [address] PCP - General Family Medicine 01/11/19 01/11/19 Jose Alfredo Rudolph MD [address] [place] [address] PCP - General Family Medicine 01/12/19 Jose Alfredo Rudolph MD [address] [place] [address] 01/01/19 Cristine Thurston MD [address] [place] [address] Referring Physician Obstetrics and Gynecology 05/04/22 documented as of this encounter
--- OUTSIDE RECORDS SUMMARY | 2025-04-23 10:10 | XMS_ITS | Clinical Summary ---
Author Organization [facility] [place] Address [facility] [place] [address] Care Team Providers Care Body Joiner Name Role Phone Jose Alfredo Rudolhp MD Unavailable [phone] Jose Alfredo Rudolph MD Primary Care Provider Cristine Thurston MD Unavailable [phone] Allergies No known active allergies Medications aspirin [...] 150 mg tablet 150 mg daily Active oyzlv-mp-5-dha-e ub-vbqyncq-age (MEGARED OMEGA-3 KRILL OIL) [phone] mg capsule 500 mg Active polyethylene glycol [...] on file Legal Sex Female 11:47 PM INSPECTOR EXPERIMENTAL ASSEMBLY Gender Identity Not on file Sexual Orientation [...] Comments Blood Pressure 108/66 11/04/2018 8:45 AM INSPECTOR EXPERIMENTAL ASSEMBLY Pulse 65 11/04/2018 8:45 AM INSPECTOR EXPERIMENTAL ASSEMBLY Temperature 36.4 C (97.5 F) 11/04/2018 8:45 AM INSPECTOR EXPERIMENTAL ASSEMBLY Respiratory Rate - - Oxygen Saturation 93% 11/04/2018 8:45 AM INSPECTOR EXPERIMENTAL ASSEMBLY Inhaled Oxygen Concentration - - Weight 88.5 [...] Read Routine (OP Routine) 09/06/2024 12:30 PM INSPECTOR EXPERIMENTAL ASSEMBLY Screening mammogram, encounter for DEXA AXIAL SKELETON BONE DENSITY 1 OR MORE SITES Schedule Routine, Read Routine (OP Routine) 09/06/2024 12:30 PM INSPECTOR EXPERIMENTAL ASSEMBLY Asymptomatic menopausal state Encounter for screening for osteoporosis from Last 3 Months or Most Recently Relevant to Health Maintenance Results * Screening Mammogram Bilateral W Isaias (09/06/2024 12:30 PM INSPECTOR EXPERIMENTAL ASSEMBLY) Anatomical Region Laterality Modality Breast Bilateral Mammography Impressions 09/06/2024 1:12 PM INSPECTOR EXPERIMENTAL ASSEMBLY BI-RADS ATLAS category (overall): 1 - Negative There is no mammographic evidence of malignancy. A 1 year screening mammogram is recommended. The patient has been or will be contacted. We recommend annual screening mammography for women at average risk of breast cancer beginning at age 40, based on guidelines of the [place] [employer] (ACR Practice Parameter for the Performance of Screening and Diagnostic Mammography) and [place]. For women with and elevated risk of breast cancer, please refer to the ACR Practice Parameter for specific screening recommendations. The patient will be entered into a reminder system with a target due date of 1 year for her next screening exam. Narrative 09/06/2024 1:12 PM INSPECTOR EXPERIMENTAL ASSEMBLY Screening Mammogram Bilateral W Isaias: 09/06/24 The [...] 1 or 2 Site (09/06/2024 12:30 PM INSPECTOR EXPERIMENTAL ASSEMBLY) Anatomical Region Laterality Modality Body N/A Mammography 09/06/2024 1:30 PM INSPECTOR EXPERIMENTAL ASSEMBLY Narrative 09/06/2024 1:31 PM INSPECTOR EXPERIMENTAL ASSEMBLY EXAM DESCRIPTION: DEXA AXIAL SKELETON BONE DENSITY 1 OR MORE SITES REASON FOR STUDY: 69 y/o year old F with given history of: Post menopausal status. Patient has taken/is taking vitamin-D and calcium Consumer Insights Specialist/Model: Consumer Agent Portal (CAP) A (S/N [id number]) CLINICAL INFORMATION: Current height: 64.5 inches Maximum [...] Luisa Mccabe M.D. TW: TW Report ID: [id number] Reading Location: [id number] Procedure Note Ana Luisa Mccabe MD - 09/06/2024 EXAM DESCRIPTION: DEXA AXIAL SKELETON BONE DENSITY 1 OR MORE SITES REASON FOR STUDY: 69 y/o year old F with given history of: Post menopausal status. Patient has taken/is taking vitamin-D and calcium Consumer Insights Specialist/Model: Consumer Agent Portal (CAP) A (S/N [id number]) CLINICAL INFORMATION: Current height: 64.5 inches Maximum [...] Luisa Mccabe M.D. TW: TW Report ID: [id number] Reading Location: [place] [address] Jarret Diego MD IMG DXA PROCEDURES Final Re sult from Last 3 Months or Most Recently Relevant to Health Maintenance Insurance [facility]ETNA [facility] PPO [facility] Care Teams Body Joiner Relationship Specialty Start Date End Date Jose Alfredo Rudolph MD [address] [facility] [address] [place] [address] PCP - General Family Medicine 01/12/19 Jose Alfredo Rudolph MD [address] [facility] [address] [place] [address] 01/01/19 Cristine Thurston MD [address] [facility] [address] [place] [address] Referring Physician Obstetrics and Gynecology 05/04/22
--- OUTSIDE RECORDS SUMMARY | 2025-04-23 10:10 | XMS_ITS | Clinical Summary ---
Author Organization [facility] Address [address], [address] [address] Phone Care Team Providers Care Modeling Agency Manager Name Role Phone Jose Alfredo Rudolph MD Primary Care Provider EdguySylvain goetz DO Unavailable [phone] Medications polyethylene glycol (MIRALAX) Powder Mix the [...] Recently Relevant to Health Maintenance Care Teams Modeling Agency Manager Relationship Specialty Start Date End Date Jose Alfredo Rudolph MD [address] [place] [address] PCP - General Family Medicine 12/31/17 Sylvain Mac DO [address] [place] [address] Gastroenterology 03/31/18
--- OUTSIDE RECORDS SUMMARY | 2025-04-23 10:10 | XMS_ITS | Encounter Summary ---
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 [facility] [address] [place] [address] documented as of this encounter Procedures Procedure [...] Final * TSH (OUTSIDE LAB) (07/03/2024) Pathologist [facility] TSH 1.49 07/03/2024 Default History Genericprovider LAB-OUTSIDE/ABST RACTED Edited Result - Final * CBC (OUTSIDE LAB) (07/03/2024) Pathologist [facility] WBC 4.3 HGB 13.2 HCT 39.9 PLT 204 07/03/2024 Default History Genericprovider LAB-OUTSIDE/ABST RACTED Edited Result - Final * LIPID PANEL (12/06/2023) [facility] CHOLESTEROL 179 HDL 75 TRIGLYCERIDES 49 NON HDL CHOLESTEROL 104 LDL (CALCULATED) 90 12/06/2023 Result [facility] History Genericprovider LABORATORY Final Result * (ABNORMAL) COMPREHENSIVE METABOLIC PANEL (06/09/2023) Pathologist [facility] SODIUM S/P/B 141 GLUCOSE 87 mg/dL AST 21 BUN 18 CREATININE S/P/B 1.10(A) 0.5 - 1.0 CALCIUM S/P/B 10.1 POTASSIUM S/P/B 3.6 CHLORIDE S/P/B 102 ALT 12 GFR ESTIMATE 55 Narrative Resulting Agency Comment Default History Genericprovider LABORATORY Final Result * LIPID PANEL (06/09/2023) Pathologist [facility] CHOLESTEROL 214 TRIGLYCERIDES 64 HDL 92 LDL (CALCULATED) 107 NON HDL CHOLESTEROL 122 Narrative Resulting Agency Comment Default History Genericprovider LABORATORY Final Result * CBC, MANUAL DIFF (06/09/2023) Pathologist [facility] WBC 3.7 HGB 13.6 HCT 40.3 PLT 212 Narrative Resulting Agency Comment Default History Genericprovider LABORATORY Final Result * LIPID PANEL (02/07/2022) CHOLESTEROL 178 HDL 70 TRIGLYCERIDES 54 NON HDL CHOLESTEROL 108 LDL (CALCULATED) 94 02/07/2022 us Doc [facility] LABORATORY Final Result documented in this encounter Visit Diagnoses Not on filedocumented in this encounter Care Teams Fishing Lure Assembler Relationship Specialty Start Date End Date Jose Alfredo Rudolph MD [address] [place] [address] PCP - General FAMILY PRACTICE 06/13/16 Kimmy Posadas MD [facility]. [facility] [address] [place] [address] [employer] Research Project Coordinator CARDIOVASCULAR DISEASE 03/13/16 documented as of this encounter
--- OUTSIDE RECORDS SUMMARY | 2025-04-23 10:10 | XMS_ITS | Referral Summary ---
Author Organization [facility] [place] Address [facility] [place] [address] Care Team Providers Care Acquisition Marketing Manager Name Role Phone Jose Alfredo Rudolph MD Unavailable [phone] Jose Alfredo Rudolph MD Primary Care Provider Cristine Thurston MD Unavailable [phone] Allergies No known active allergies Medications aspirin [...] 150 mg tablet 150 mg daily Active ozjmp-lv-8-dha-e ou-evgqizl-vgs (MEGARED OMEGA-3 KRILL OIL) [phone] mg capsule 500 mg Active polyethylene glycol [...] on file Legal Sex Female 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 file Not on file Last Filed Vital Signs Vital Sign Reading Time Taken Comments Blood Pressure 108/66 11/04/2018 8:45 AM MEAT SERVICE TEAM MEMBER Pulse 65 11/04/2018 8:45 AM MEAT SERVICE TEAM MEMBER Temperature 36.4 C (97.5 F) 11/04/2018 8:45 AM MEAT SERVICE TEAM MEMBER Respiratory Rate - - Oxygen Saturation 93% 11/04/2018 8:45 AM MEAT SERVICE TEAM MEMBER Inhaled Oxygen Concentration - - Weight 88.5 kg (195 lb) 02/14/2020 3:15 PM CDT Height 165.1 cm (5' 5) 02/14/2020 3:15 PM CDT Body Mass Index 32.45 02/14/2020 3:15 PM CDT Plan of Treatment Not on file Procedures Procedure Name Priority Date/Time Associated Diagnosis Comments SCREENING MAMMOGRAM BILATERAL W ISAIAS Schedule Routine, Read Routine (OP Routine) 09/06/2024 12:30 PM MEAT SERVICE TEAM MEMBER Screening mammogram, encounter for DEXA AXIAL SKELETON BONE DENSITY 1 OR MORE SITES Schedule Routine, Read Routine (OP Routine) 09/06/2024 12:30 PM MEAT SERVICE TEAM MEMBER Asymptomatic menopausal state Encounter for screening for osteoporosis from Last 3 Months or Most Recently Relevant to Health Maintenance Results * Screening Mammogram Bilateral W Isaias (09/06/2024 12:30 PM MEAT SERVICE TEAM MEMBER) Anatomical Region Laterality Modality Breast Bilateral Mammography Impressions 09/06/2024 1:12 PM MEAT SERVICE TEAM MEMBER BI-RADS ATLAS category (overall): 1 - Negative There is no mammographic evidence of malignancy. A 1 year screening mammogram is recommended. The patient has been or will be contacted. We recommend annual screening mammography for women at average risk of breast cancer beginning at age 40, based on guidelines of the [place] [employer] (ACR Practice Parameter for the Performance of Screening and Diagnostic Mammography) and [place] [employer]. For women with and elevated risk of breast cancer, please refer to the ACR Practice Parameter for specific screening recommendations. The patient will be entered into a reminder system with a target due date of 1 year for her next screening exam. Narrative 09/06/2024 1:12 PM MEAT SERVICE TEAM MEMBER Screening Mammogram Bilateral W Isaias: 09/06/24 The [...] 1 or 2 Site (09/06/2024 12:30 PM MEAT SERVICE TEAM MEMBER) Anatomical Region Laterality Modality Body N/A Mammography 09/06/2024 1:30 PM MEAT SERVICE TEAM MEMBER Narrative 09/06/2024 1:31 PM MEAT SERVICE TEAM MEMBER EXAM DESCRIPTION: DEXA AXIAL SKELETON BONE DENSITY 1 OR MORE SITES REASON FOR STUDY: 69 y/o year old F with given history of: Post menopausal status. 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 TW: TW Report ID: [id number] Reading Location: [id number] Procedure Note Ana Luisa Mccabe MD - 09/06/2024 EXAM DESCRIPTION: DEXA AXIAL SKELETON BONE DENSITY 1 OR MORE SITES REASON FOR STUDY: 69 y/o year old F with given history of: Post menopausal status. 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 TW: TW Report ID: [id number] Reading Location: [id number] Jarret Diego MD IMG DXA PROCEDURES Final Re sult from Last 3 Months or Most Recently Relevant to Health Maintenance Insurance AETNA [facility] [place] [address] [facility] Care Teams Acquisition Marketing Manager Relationship Specialty Start Date End Date Jose Alfredo Rudolph MD [address] [address] PCP - General Family Medicine 01/12/19 Jose Alfredo Rudolph MD [address] [facility] [address] [place] [address] 01/01/19 Cristine Thurston MD [address] [facility] [address] [place] [address] Referring Physician Obstetrics and Gynecology 05/04/22
[2025-04-23] MEDS: ACETAMINOPHEN 500 MG TABLET 1000 MG PO (11:20)
[2025-04-23 11:23] VITALS: BP 134/78; PULSE 85; RESP 16; O2SAT 99
== END 2025-04-23 11:34 | disposition home or self-care (01) ==
PROVIDERS: Emergency Provider Emergency Medicine; PCP Family Medicine
DX: S00.83XA Contusion of other part of head, initial encounter (principal); I12.9 Hypertensive chronic kidney disease with stage 1 through stage 4 chronic kidney disease, or unspecified chronic kidney disease; N18.30 Chronic kidney disease, stage 3 unspecified; E78.5 Hyperlipidemia, unspecified; I25.10 Atherosclerotic heart disease of native coronary artery without angina pectoris; Z96.659 Presence of unspecified artificial knee joint; Z90.49 Acquired absence of other specified parts of digestive tract; Z90.710 Acquired absence of both cervix and uterus; Z98.1 Arthrodesis status; Z79.899 Other long term (current) drug therapy; W01.198A Fall on same level from slipping, tripping and stumbling with subsequent striking against other object, initial encounter
CPT/HCPCS: 70450; 72125; 99284; A9270